=== PATIENT | female | born 1965 | race Caucasian/White ===

== ENCOUNTER → 2017-05-30 | Outpatient (CLI) | payer BC ==
--- NOTE | 2017-06-01 07:25 | MM ---
Reason for exam: screening (asymptomatic). Last mammogram was performed 1 year and 4 months ago. History: Patient is postmenopausal and has history of endometrial cancer at age 21. Physical Findings: A clinical breast exam by your physician is recommended on an annual basis and results should be correlated with mammographic findings. MG 3D Screening Mammo W/Cad Bilateral CC and MLO view(s) were taken. XCCL view(s) were taken of the left breast. Prior study comparison: February 04, 2016, bilateral MG 3d screening mammo w/cad. November 25, 2013, bilateral digital screening mammo w/CAD. There are scattered fibroglandular densities. There is chronic nodularity in the right breast. No significant changes when compared with prior studies. ASSESSMENT: Negative, BI-RAD 1 RECOMMENDATION: Routine screening mammogram of both breasts in 1 year.
== END | disposition home or self-care (01) ==
LOC: RADMAMWWP 16:29
PROVIDERS: ATTEND Family Medicine
DX: Z12.31 Encounter for screening mammogram for malignant neoplasm of breast (principal)
CPT/HCPCS: 77063; G0202

== ENCOUNTER → 2017-09-13 | Outpatient (CLI) | payer BC ==
[2017-09-13 09:54] LABS: HCT 46.9 % (34.0-46.0); HDW 2.29; HGB 15.4 gm/dL (11.4-16.0); MCH 29.9 pg (25.0-35.0); MCHC 32.7 g/dL (31.0-37.0); MCV 91.4 fL (80.0-100.0); Mean Platelet Volume 8.4; RBC 5.14 m/uL (3.80-5.40); RDW 13.5 % (11.5-15.5); WBC 7.3 k/uL (3.8-10.6)
[2017-09-13 10:08] LABS: ALT 44 U/L (9-52); AST 22 U/L (14-36); Alkaline Phosphatase 112 U/L (38-126); Anion Gap 5 mmol/L; Blood Urea Nitrogen 15 mg/dL (7-17); Calcium 10.2 mg/dL (8.4-10.2); Carbon Dioxide 30 mmol/L (22-30); Chloride 106 mmol/L (98-107); Glucose 124 mg/dL (74-99); Non-African American GFR(MDRD) >60 (>60 ml/min/1.73 sqM); Potassium 4.6 mmol/L (3.5-5.1); Sodium 141 mmol/L (137-145); Total Bilirubin 0.4 mg/dL (0.2-1.3); Total Protein 7.2 g/dL (6.3-8.2)
[2017-09-17 17:52] LABS: Large VLDL Particle Number,NMR 7.5 nmol/L (<=2.7)
== END | disposition home or self-care (01) ==
LOC: LABWHC1 09:01
PROVIDERS: ATTEND Nurse Practitioner Adult Health
DX: E78.2 Mixed hyperlipidemia (principal); I10 Essential (primary) hypertension; I42.2 Other hypertrophic cardiomyopathy
CPT/HCPCS: 36415; 80053; 83704; 85027

== ENCOUNTER → 2017-12-29 | Outpatient (CLI) | payer BC ==
--- NOTE | 2017-12-29 15:05 | CT ---
EXAMINATION TYPE: CT brain wo con DATE OF EXAM: 12/29/2017 COMPARISON: NONE HISTORY: sharp pains to right side of head, prior injuries to right side of head years ago CT DLP: 1017.9 mGycm Automated exposure control for dose reduction was used. FINDINGS: Metallic foreign body noted with along the posterior superior parietal calvarium on the right. Ventricular system is midline with no displacement. No mass effect. No acute hemorrhage. Calvarium intact. IMPRESSION: NO ACUTE PROCESS IF SYMPTOMS PERSIST RECOMMEND MRI. CHRONIC APPEARING SOFT TISSUE TISSUE FOREIGN BODY POSTERIORLY ALONG THE PARIETAL CALVARIUM PARACENTRALLY TO THE RIGHT.
== END | disposition home or self-care (01) ==
LOC: RADCTMAIN 14:21
PROVIDERS: ATTEND Physician Assistant Medical
DX: M79.5 Residual foreign body in soft tissue (principal); I10 Essential (primary) hypertension
CPT/HCPCS: 70450

== ENCOUNTER 2018-03-26 12:21 | Emergency (ER) | payer BC ==
[2018-03-26 13:01] VITALS: BP 152/81; PULSE 71; RESP 16; TEMP 98.3
--- NOTE | 2018-03-26 13:12 | ED ---
Lower Extremity Injury HPI - General Chief Complaint: Extremity Injury, Lower Stated Complaint: Knee Pain Time Seen by Provider: 03/26/18 13:01 Source: patient, RN notes reviewed Mode of arrival: wheelchair Limitations: no limitations - History of Present Illness Initial Comments: This is a 52-year-old female who presents to the emergency department with chief complaint of left knee pain. Patient states that on Monday she was doing some gardening. She states that she was repeatedly getting up and down from sitting on a 3 gallon bucket while gardening. She states that since that time she has had pain and swelling in her left knee. 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 She states that the pain is increased since repeatedly walking on it. She denies any other injuries or trauma. She states that she has a history of intermittent knee pain but that it usually goes away after a couple days. Denies fevers or chills, chest pain or shortness of breath, abdominal pain, nausea or vomiting. - Related Data Home Medications Medication Instructions Recorded Confirmed Atorvastatin [Lipitor] 40 mg PO HS 07/03/14 09/23/14 Famotidine 20 mg PO BID 07/03/14 09/23/14 Levothyroxine Sodium [Synthroid] 25 mcg PO DAILY 07/03/14 09/22/14 Omeprazole [PriLOSEC] 20 mg PO DAILY 07/03/14 09/22/14 Pramipexole Di-HCl [Mirapex] 0.25 mg PO HS 07/03/14 09/23/14 Ubidecarenone [Coq-10] 100 mg PO DAILY 07/03/14 09/23/14 Hyoscyamine Sulfate [Hyoscyamine 0.125 mg SL DIRECTED PRN 09/22/14 09/23/14 Sulfate SL] Nitroglycerin Oint [Nitro-Bid Oint] 1 applic TOPICAL BID 09/22/14 09/23/14 Previous Rx's Medication Instructions Recorded Hydrocodone/Acetaminophen [Mead 1 each PO Q4HR PRN #30 08/20/14 5-325] Ibuprofen [Motrin] 600 mg PO Q6HR PRN #30 tab 08/20/14 Allergies Allergy/AdvReac Type Severity Reaction Status Date / Time No Known Allergies Allergy Verified 03/26/18 13:01 Review of Systems ROS Statement: Those systems with pertinent positive or pertinent negative responses have been documented in the HPI. ROS Other: All systems not noted in ROS Statement are negative. Past Medical History Past Medical History: Chest Pain / Angina, GERD/Reflux, Hyperlipidemia, Thyroid Disorder Additional Past Medical History / Comment(s): STATES CURRENT RECTAL FISSURE AND RECTAL PAIN, blood in stool, hx ulcer, hx gout, frequent urination, states had couple readings of high BP at doctors office but not on rx or dx with hypertension. SOB with activity, hypertrophic cadrio myopathy History of Any Multi-Drug Resistant Organisms: None Reported Past Surgical History: Cholecystectomy, Hysterectomy, Orthopedic Surgery, Tonsillectomy, Tubal Ligation Additional Past Surgical History / Comment(s): rt foot surgery Past Anesthesia/Blood Transfusion Reactions: Motion Sickness Additional Past Anesthesia/Blood Transfusion Reaction / Comment(s): SPINNING Past Psychological History: No Psychological Hx Reported Smoking Status: Current every day smoker General Exam - General Exam Comments Initial Comments: General: Awake and alert, well-developed; in no apparent distress. HEENT: Head atraumatic, normocephalic. Pupils are equal, round and reactive to light. Extraocular movements intact. Oropharynx moist without erythema or exudate. Neck: Supple. Normal ROM. Cardiovascular: Regular rate and rhythm. No murmurs, rubs or gallops. Chest symmetrical. Respiratory: Lungs clear to auscultation bilaterally. No wheezes, rales or rhonchi. Normal respiratory effort with no use of accessory muscles. Musculoskeletal: Limited range of motion with flexion of the left knee due to pain. Generalized soft tissue swelling. No erythema. Tenderness on palpation of the medial joint line. Sensation is intact. Pedal pulses are 2+ equal and palpable bilaterally. Skin: [place], warm and dry without rashes or lesions. Neurological: Alert and oriented x3. CN II-XII grossly intact. Speech is fluent and answers are appropriate. No focal neuro deficits. Psychiatric: Normal mood and affect. No overt signs of depression or anxiety noted. Limitations: no limitations Course Vital Signs 03/26/18 12:58 Temperature 98.3 F Pulse Rate 71 Respiratory 16 Rate Blood Pressure 152/81 O2 Sat by Pulse 99 Oximetry Medical Decision Making - Medical Decision Making This is a 52-year-old female who presents to the emergency department with chief complaint of left knee injury. Patient reports repeated use of the left knee that has resulted in tenderness while ambulating and swelling. On physical examination, there is generalized soft tissue swelling of the left knee with tenderness along the medial joint line. She is neurovascularly intact. X-ray of the left knee revealed no acute fractures or dislocations. It did reveal a suprapatellar effusion. Knee immobilizer was provided and patient tolerated well without complication. Recommended rest, ice, elevation and follow-up with orthopedics. Patient is in agreement with plan and voices understanding. She is no acute distress and will be discharged home at this time. All questions answered. - Radiology Data Radiology results: report reviewed, image reviewed X-ray left knee impression: There is no acute fracture or dislocation. Suprapatellar joint effusion noted. Disposition Clinical Impression: Acute internal derangement of knee Disposition: HOME SELF-CARE Condition: Good Instructions: Knee Sprain (ED), Swollen Knee Joint (ED), Knee Immobilizer (ED) Additional Instructions: Please rest, ice, elevate and take ibuprofen as needed. Please follow up with Dr. Villaseñor, orthopedics within 1-2 days. Please follow up with primary care provider within 1-2 days. Return to emergency department if symptoms should worsen or any concerns arise. Is patient prescribed a controlled substance at d/c from ED?: No Referrals: Michael Bills DO [Primary Care Provider] - 1-2 days Hung Villaseñor MD [STAFF PHYSICIAN] - 1-2 days Time of Disposition: 13:43
--- NOTE | 2018-03-26 13:25 | XR ---
EXAMINATION TYPE: XR knee complete LT DATE OF EXAM: 03/26/2018 CLINICAL HISTORY: pain TECHNIQUE: Three views of the left knee are obtained. COMPARISON: None. FINDINGS: There is no acute fracture/dislocation. The tri-compartment joint spaces appear within no rmal limits. Suprapatellar joint effusion noted. IMPRESSION: There is no acute fracture or dislocation ICD 10 NO FRACTURE, INITIAL EVALUATION
== END 2018-03-26 13:55 | disposition home or self-care (01) ==
LOC: EC 12:21
DX: S89.82XA Other specified injuries of left lower leg, initial encounter (principal); M25.462 Effusion, left knee; E78.5 Hyperlipidemia, unspecified; E07.9 Disorder of thyroid, unspecified; K21.9 Gastro-esophageal reflux disease without esophagitis; F17.200 Nicotine dependence, unspecified, uncomplicated; Z79.899 Other long term (current) drug therapy; Z86.79 Personal history of other diseases of the circulatory system; X50.3XXA Overexertion from repetitive movements, initial encounter; Y93.H2 Activity, gardening and landscaping
CPT/HCPCS: 73562; 99283; L1830

== ENCOUNTER → 2018-07-24 | Outpatient (CLI) | payer BC ==
[2018-07-24 14:18] VITALS: BMI 29.9
== END | disposition home or self-care (01) ==
LOC: MNTWWP 10:56
PROVIDERS: ATTEND Family Medicine
DX: R73.03 Prediabetes (principal); I10 Essential (primary) hypertension
CPT/HCPCS: 97802

== ENCOUNTER → 2018-10-01 | Outpatient (CLI) | payer BC ==
--- NOTE | 2018-10-04 13:14 | MM ---
Reason for exam: screening (asymptomatic). Last mammogram was performed 1 year and 4 months ago. History: Patient is postmenopausal and has history of endometrial cancer at age 21. Physical Findings: A clinical breast exam by your physician is recommended on an annual basis and results should be correlated with mammographic findings. MG 3D Screening Mammo W/Cad Bilateral CC and MLO view(s) were taken. Prior study comparison: May 30, 2017, bilateral MG 3d screening mammo w/cad. February 04, 2016, bilateral MG 3d screening mammo w/cad. The breast tissue is heterogeneously dense. This may lower the sensitivity of mammography. Previous mammotome biopsy in the right breast. No significant changes when compared with prior studies. ASSESSMENT: Benign, BI-RAD 2 RECOMMENDATION: Routine screening mammogram of both breasts in 1 year.
== END | disposition home or self-care (01) ==
LOC: RADMAMWWP 10:49
PROVIDERS: ATTEND Family Medicine
DX: Z12.31 Encounter for screening mammogram for malignant neoplasm of breast (principal)
CPT/HCPCS: 77063; 77067

== ENCOUNTER → 2019-01-08 | Outpatient (CLI) | payer BC ==
--- NOTE | 2019-01-08 13:57 | XR ---
EXAMINATION TYPE: PA chest and left rib series DATE OF EXAM: 01/08/2019 Comparison: None Clinical History: 53-year-old female chronic left [id number] RIB PAIN FINDINGS: 5 views Findings: The cardiomediastinal silhouette, aorta, and pulmonary vasculature are within normal limits. Some st guy atelectasis in the lower lungs. Calcified granuloma peripheral left base. No consolidation or p leural effusion. No displaced left rib fracture seen. Impression: No acute cardiopulmonary process. No displaced left rib fracture seen.
== END | disposition home or self-care (01) ==
LOC: RADXRYALE 11:42
PROVIDERS: ATTEND Physician Assistant Medical
DX: R07.89 Other chest pain (principal)

== ENCOUNTER → 2020-06-30 | Outpatient (CLI) | payer BC ==
--- NOTE | 2020-06-30 22:55 | XR ---
EXAMINATION TYPE: XR wrist complete RT DATE OF EXAM: 06/30/2020 COMPARISON: None HISTORY: Pain from fall TECHNIQUE: Three-view right wrist FINDINGS: No acute fracture or dislocation is evident. Joint spaces are preserved. Soft tissues are n ormal. Follow-up exams can be performed 7-10 days from acute trauma for continued pain. If there is pain at the anatomic snuff box, nuclear medicine bone scan could be performed for additional evaluation. IMPRESSION: 1. Normal three-view right wrist.
--- NOTE | 2020-06-30 22:56 | XR ---
EXAMINATION TYPE: XR tibia fibula LT DATE OF EXAM: 06/30/2020 COMPARISON: None HISTORY: Pain swelling fall TECHNIQUE: 2 view left tibia and fibula FINDINGS: No acute fracture or dislocation is evident. Soft tissues appear normal. No significant swe lling is identified. No radiopaque foreign bodies are evident. Joint spaces are preserved. Follow-up studies can be performed 7-10 days from acute trauma for continued pain. IMPRESSION: 1. Normal 2 view left tibia and fibula
== END | disposition home or self-care (01) ==
LOC: RADXRYALE 15:43
PROVIDERS: ATTEND Family Medicine
DX: M25.532 Pain in left wrist (principal); M79.605 Pain in left leg

== ENCOUNTER 2020-08-10 10:52 | Observation (INO) | payer BC ==
[2020-08-10] MEDS ORDERED: SODIUM CHLORIDE 0.9% 500 ML 500 ML IV STA (11:25)
--- NOTE | 2020-08-10 11:35 | ED ---
General Adult HPI - General Chief complaint: Recheck/Abnormal Lab/Rx Stated complaint: Vertigo Time Seen by Provider: 08/10/20 11:11 Source: patient, RN notes reviewed, old records reviewed Mode of arrival: EMS Limitations: no limitations - History of Present Illness Initial comments: 55-year-old female presenting for evaluation of headache, weakness. Patient was at home. She had a headache which began approximately one hour prior to arrival. This was an occipital headache. At the time she had some associated nausea and diaphoresis. She states she felt like she was unable to move and EMS was called. Patient states that she has a persistent headache and nausea. No fever. She denies focal numbness or weakness at this time. She denies abdo david pain only nausea. - Related Data Home Medications Medication Instructions Recorded Confirmed Atorvastatin [Lipitor] 40 mg PO HS 07/03/14 08/10/20 Levothyroxine Sodium [Synthroid] 25 mcg PO DAILY 07/03/14 08/10/20 Omeprazole [PriLOSEC] 20 mg PO BID 07/03/14 08/10/20 Albuterol Sulfate [Ventolin HFA] 2 puff INHALATION RT-Q4H PRN 08/10/20 08/10/20 Baclofen [Lioresal] 20 mg PO BID PRN 08/10/20 08/10/20 Cholecalciferol [Vitamin D3 (25 4,000 unit PO DAILY 08/10/20 08/10/20 Mcg = 1000 Iu)] Ezetimibe [Zetia] 10 mg PO DAILY 08/10/20 08/10/20 Folic Acid 0.8 mg PO DAILY 08/10/20 08/10/20 Gabapentin [Neurontin] 300 mg PO TID 08/10/20 08/10/20 Ibuprofen [Motrin] 800 mg PO Q8H PRN 08/10/20 08/10/20 [place]-3 Fatty Acids/Fish Oil [Fish 1 cap PO DAILY 08/10/20 08/10/20 Oil 1,000 mg Softgel] Ondansetron HCl [Zofran] 1 - 2 mg PO Q8H PRN 08/10/20 08/10/20 Pramipexole [Mirapex] 1 mg PO HS 08/10/20 08/10/20 SUMAtriptan SUCCINATE [Imitrex] 25 mg PO BID PRN 08/10/20 08/10/20 Ubidecarenone [Co Q-10] 300 mg PO DAILY 08/10/20 08/10/20 amLODIPine BESYLATE/BENAZEPRIL 1 cap PO DAILY 08/10/20 08/10/20 [Lotrel 10-20 MG] sitaGLIPtin PHOSPHATE [Januvia] 50 mg PO DAILY 08/10/20 08/10/20 Allergies Allergy/AdvReac Type Severity Reaction Status Date / Time No Known Allergies Allergy Verified 08/10/20 12:34 Review of Systems ROS Statement: Those systems with pertinent positive or pertinent negative responses have been documented in the HPI. ROS Other: All systems not noted in ROS Statement are negative. Past Medical History Past Medical History: Chest Pain / Angina, Diabetes Mellitus, GERD/Reflux, Hyperlipidemia, Thyroid Disorder Additional Past Medical History / Comment(s): STATES CURRENT RECTAL FISSURE AND RECTAL PAIN, blood in stool, hx ulcer, hx gout, frequent urination, states had couple readings of high BP at doctors office but not on rx or dx with hypertension. SOB with activity, hypertrophic cadrio myopathy History of Any Multi-Drug Resistant Organisms: None Reported Past Surgical History: Cholecystectomy, Hysterectomy, Orthopedic Surgery, Tonsillectomy, Tubal Ligation Additional Past Surgical History / Comment(s): rt foot surgery Past Anesthesia/Blood Transfusion Reactions: Motion Sickness Additional Past Anesthesia/Blood Transfusion Reaction / Comment(s): SPINNING Past Psychological History: No Psychological Hx Reported Smoking Status: Current every day smoker Past Alcohol Use History: Rare Past Drug Use History: Marijuana General Exam Limitations: no limitations General appearance: alert, in no apparent distress Head exam: Present: atraumatic, normocephalic Eye exam: Present: normal appearance, PERRL ENT exam: Present: mucous membranes dry Neck exam: Present: normal inspection. Absent: tenderness, meningismus Respiratory exam: Present: normal lung sounds bilaterally. Absent: respiratory distress, wheezes Cardiovascular Exam: Present: regular rate, normal rhythm GI/Abdominal exam: Present: soft. Absent: distended, tenderness, guarding, rebound Extremities exam: Present: normal inspection, normal capillary refill. Absent: pedal edema, calf tenderness Neurological exam: Present: alert, oriented X3, CN II-XII intact. Absent: motor sensory deficit Psychiatric exam: Present: normal affect, normal mood Skin exam: Present: warm, dry, intact. Absent: cyanosis, diaphoretic Course Vital Signs 08/10/20 08/10/20 11:00 12:18 Temperature 97.9 F Pulse Rate 57 L 71 Respiratory 18 18 Rate Blood Pressure 116/66 122/71 O2 Sat by Pulse 96 97 Oximetry EKG Findings - EKG Comments: EKG Findings:: EKG: Sinus bradycardia, LVH, rate of 54, ND interval 184, QRS duration 98, QTC 455, no ST segment elevation. Medical Decision Making - Medical Decision Making 55-year-old female with dizziness, headache, vomiting. Patient stating she does have history of vertigo, this is somewhat similar. She also admits that she has not slept well in several weeks. She has no ataxia or focal findings on exam. Head CT is performed which is negative for intracranial hemorrhage or mass effect. Does show an empty sella. Patient has chest x-ray negative for acute cardiopulmonary findings. Laboratory testing reveals leukocytosis of uncertain etiology, otherwise unremarkable. After meclizine, Zofran, IV fluids she has persistent dizziness and nausea. She will be admitted for both symptomatic control and neurology consultation regarding her vertigo. Case discussed with Dr. silverio who will admit. - Lab Data Result diagrams: 08/10/20 11:49 08/10/20 11:49 Lab Results 08/10/20 08/10/20 08/10/20 Range/Units 11:49 11:49 11:49 WBC 13.8 H (3.8-10.6) k/uL RBC 4.81 (3.80-5.40) m/uL Hgb 14.9 (11.4-16.0) gm/dL Hct 44.1 (34.0-46.0) % MCV 91.8 (80.0-100.0) fL MCH 31.1 (25.0-35.0) pg MCHC 33.9 (31.0-37.0) g/dL RDW 12.2 (11.5-15.5) % Plt Count 201 (150-450) k/uL Neutrophils % 84 % Lymphocytes % 11 % Monocytes % 4 % Eosinophils % 1 % Basophils % 0 % Neutrophils # 11.6 H (1.3-7.7) k/uL Lymphocytes # 1.4 (1.0-4.8) k/uL Monocytes # 0.5 (0-1.0) k/uL Eosinophils # 0.1 (0-0.7) k/uL Basophils # 0.1 (0-0.2) k/uL PT 9.9 (9.0-12.0) sec INR 0.9 (<1.2) APTT 20.4 L (22.0-30.0) sec Sodium 138 (137-145) mmol/L Potassium 4.4 (3.5-5.1) mmol/L Chloride 109 H (98-107) mmol/L Carbon Dioxide 23 (22-30) mmol/L Anion Gap 6 mmol/L BUN 18 H (7-17) mg/dL Creatinine 0.60 (0.52-1.04) mg/dL Est GFR (CKD-EPI)AfAm >90 (>60 ml/min/1.73 sqM) Est GFR (CKD-EPI)NonAf >90 (>60 ml/min/1.73 sqM) Glucose 169 H (74-99) mg/dL Plasma Lactic Acid Joe (0.7-2.0) mmol/L Calcium 9.2 (8.4-10.2) mg/dL Magnesium 1.8 (1.6-2.3) mg/dL Total Bilirubin 0.5 (0.2-1.3) mg/dL AST 24 (14-36) U/L ALT 17 (4-34) U/L Alkaline Phosphatase 79 (38-126) U/L Troponin I (0.000-0.034) ng/mL Total Protein 6.7 (6.3-8.2) g/dL Albumin 4.2 (3.5-5.0) g/dL Urine Color Urine Appearance (Clear) Urine pH (5.0-8.0) Ur Specific [place] (1.001-1.035) Urine Protein (Negative) Urine Glucose (UA) (Negative) Urine Ketones (Negative) Urine Blood (Negative) Urine Nitrite (Negative) Urine Bilirubin (Negative) Urine Urobilinogen (<2.0) mg/dL Ur Leukocyte Esterase (Negative) Urine WBC (0-5) /hpf Ur Squamous Epith Cells (0-4) /hpf Urine Bacteria (None) /hpf Urine Mucus (None) /hpf 08/10/20 08/10/20 08/10/20 Range/Units 11:49 11:49 13:14 WBC (3.8-10.6) k/uL RBC (3.80-5.40) m/uL Hgb (11.4-16.0) gm/dL Hct (34.0-46.0) % MCV (80.0-100.0) fL MCH (25.0-35.0) pg MCHC (31.0-37.0) g/dL RDW (11.5-15.5) % Plt Count (150-450) k/uL Neutrophils % % Lymphocytes % % Monocytes % % Eosinophils % % Basophils % % Neutrophils # (1.3-7.7) k/uL Lymphocytes # (1.0-4.8) k/uL Monocytes # (0-1.0) k/uL Eosinophils # (0-0.7) k/uL Basophils # (0-0.2) k/uL PT (9.0-12.0) sec INR (<1.2) APTT (22.0-30.0) sec Sodium (137-145) mmol/L Potassium (3.5-5.1) mmol/L Chloride (98-107) mmol/L Carbon Dioxide (22-30) mmol/L Anion Gap mmol/L BUN (7-17) mg/dL Creatinine (0.52-1.04) mg/dL Est GFR (CKD-EPI)AfAm (>60 ml/min/1.73 sqM) Est GFR (CKD-EPI)NonAf (>60 ml/min/1.73 sqM) Glucose (74-99) mg/dL Plasma Lactic Acid Joe 1.9 (0.7-2.0) mmol/L Calcium (8.4-10.2) mg/dL Magnesium (1.6-2.3) mg/dL Total Bilirubin (0.2-1.3) mg/dL AST (14-36) U/L ALT (4-34) U/L Alkaline Phosphatase (38-126) U/L Troponin I <0.012 (0.000-0.034) ng/mL Total Protein (6.3-8.2) g/dL Albumin (3.5-5.0) g/dL Urine Color Yellow Urine Appearance Clear (Clear) Urine pH 5.5 (5.0-8.0) Ur Specific [place] 1.014 (1.001-1.035) Urine Protein Negative (Negative) Urine Glucose (UA) Negative (Negative) Urine Ketones Negative (Negative) Urine Blood Negative (Negative) Urine Nitrite Negative (Negative) Urine Bilirubin Negative (Negative) Urine Urobilinogen <2.0 (<2.0) mg/dL Ur Leukocyte Esterase Trace H (Negative) Urine WBC 2 (0-5) /hpf Ur Squamous Epith Cells 1 (0-4) /hpf Urine Bacteria Few H (None) /hpf Urine Mucus Rare H (None) /hpf Disposition Clinical Impression: Vertigo, Intractable nausea and vomiting Disposition: ADMITTED IP TO THIS [facility] Condition: Stable Is patient prescribed a controlled substance at d/c from ED?: No Referrals: Michael Bills DO [Primary Care Provider] - 1-2 days Decision to Admit Reason: Admit from EC Decision Date: 08/10/20 Decision Time: 13:59
--- NOTE | 2020-08-10 12:07 | CT ---
EXAMINATION TYPE: CT brain wo con DATE OF EXAM: 08/10/2020 COMPARISON: 12/29/2017 HISTORY: 55-year-old female [place], dizziness TECHNIQUE: Examination was done in axial plane without intravenous contrast. Coronal and sagittal r econstructions performed. CT DLP: 1099.4 mGycm Automated exposure control for dose reduction was used. FINDINGS: There is no evidence of acute intracranial hemorrhage, acute ischemic changes, mass, mass-effect, or extra-axial fluid collection. There is no effacement of cerebral sulci or basal subarachnoid cister ns. There is no hydrocephalus. There is no midline shift. Aguirre-white matter distinction is preserv ed. Empty sella redemonstrated. Moderate mucosal thickening posterior left ethmoid air cells. Mastoid air cells are pneumatized. Orbi ts and globes are intact. IMPRESSION: 1. Empty sella redemonstrated, possibly an incidental finding but can also be seen with entities such as pseudotumor cerebri. Clinically correlate. Otherwise, no acute intracranial abnormality seen. 2. Moderate chronic left ethmoid sinus disease.
[2020-08-10 12:13] LABS: Basophils # (A) 0.1 k/uL (0-0.2); Basophils % (A) 0 %; Eosinophils # (A) 0.1 k/uL (0-0.7); Eosinophils % (A) 1 %; HCT 44.1 % (34.0-46.0); HGB 14.9 gm/dL (11.4-16.0); Lymphocytes # (A) 1.4 k/uL (1.0-4.8); Lymphocytes % (A) 11 %; MCH 31.1 pg (25.0-35.0); MCHC 33.9 g/dL (31.0-37.0); MCV 91.8 fL (80.0-100.0); Mean Platelet Volume 7.8; Monocytes # (A) 0.5 k/uL (0-1.0); Monocytes % (A) 4 %; Neutrophils # (A) 11.6 k/uL (1.3-7.7); Neutrophils % (A) 84 %; Platelet Count 201 k/uL (150-450); RBC 4.81 m/uL (3.80-5.40); RDW 12.2 % (11.5-15.5); WBC 13.8 k/uL (3.8-10.6)
--- NOTE | 2020-08-10 12:16 | XR ---
EXAMINATION TYPE: XR chest 2V DATE OF EXAM: 08/10/2020 CLINICAL HISTORY: Weakness. TECHNIQUE: Frontal and lateral views of the chest are obtained. COMPARISON: 01/08/2019 chest radiograph FINDINGS: The cardiomediastinal silhouette is within normal limits for size. Pulmonary vasculature i s normal. Redemonstrated granuloma of the left lung base. Right basilar linear atelectasis versus sca rring redemonstrated. There is no focal air space opacity, pleural effusion, or pneumothorax seen. Th e osseous structures are intact. IMPRESSION: No acute cardiopulmonary process.
[2020-08-10 12:19] LABS: ALT 17 U/L (4-34); AST 24 U/L (14-36); African American GFR (CKD) >90 (>60 ml/min/1.73 sqM); Albumin 4.2 g/dL (3.5-5.0); Alkaline Phosphatase 79 U/L (38-126); Anion Gap 6 mmol/L; Blood Urea Nitrogen 18 mg/dL (7-17); Calcium 9.2 mg/dL (8.4-10.2); Carbon Dioxide 23 mmol/L (22-30); Chloride 109 mmol/L (98-107); Glucose 169 mg/dL (74-99); Magnesium 1.8 mg/dL (1.6-2.3); Non-African American GFR(CKD) >90 (>60 ml/min/1.73 sqM); Potassium 4.4 mmol/L (3.5-5.1); Sodium 138 mmol/L (137-145); Total Bilirubin 0.5 mg/dL (0.2-1.3); Total Protein 6.7 g/dL (6.3-8.2)
[2020-08-10 12:28] LABS: INR 0.9 (<1.2); Prothrombin Time 9.9 sec (9.0-12.0)
[2020-08-10 12:34] LABS: Partial Thromboplastin Time 20.4 sec (22.0-30.0)
[2020-08-10] MEDS ORDERED: SODIUM CHLORIDE 0.9% 500 ML 500 ML IV ONE (12:59)
[2020-08-10] MEDS ORDERED: ONDANSETRON 4 MG/2 ML VIAL IVP STA (12:59)
[2020-08-10] MEDS ORDERED: MECLIZINE 12.5 MG TAB PO STA (12:59)
[2020-08-10 13:37] LABS: Appearance,Urine Clear (Clear); Bacteria,Urine Few /hpf; Bilirubin,Urine Negative (Negative); Blood,Urine Negative (Negative); Color,Urine Yellow; Glucose,Urine (UA) Negative (Negative); Ketones,Urine Negative (Negative); Leukocyte Esterase,Urine Trace (Negative); Mucus,Urine Rare /hpf; Nitrite,Urine Negative (Negative); PH, Urine 5.5 (5.0-8.0); Protein,Urine Negative (Negative); Specific Gravity,Urine 1.014 (1.001-1.035); Squamous Epithelial Cell,Urine 1 /hpf (0-4); Urobilinogen,Urine <2.0 mg/dL (<2.0); WBC,Urine 2 /hpf (0-5)
[2020-08-10] MEDS ORDERED: ASPIRIN 325 MG TAB PO STA (13:56)
[2020-08-10] MEDS ORDERED: LORazepam 2 MG/ML INJ IV PRN (13:56)
[2020-08-10] MEDS ORDERED: ONDANSETRON 4 MG/2 ML VIAL IVP PRN ×2 (13:56→19:30)
[2020-08-10] MEDS ORDERED: NALOXONE 0.4 MG/ML 1 ML VIAL IV PRN (13:56)
[2020-08-10] MEDS ORDERED: MECLIZINE 25 MG TAB PO PRN (13:56)
[2020-08-10] MEDS ORDERED: ACETAMINOPHEN TAB 325 MG TAB PO PRN (13:56)
[2020-08-10] MEDS: SODIUM CHLORIDE 0.9% 1,000 ML IV SCH (14:54)
[2020-08-10 16:35] LABS: Glucose,Whole Blood 123 mg/dL (75-99)
--- NOTE | 2020-08-10 18:29 | P.CNNES ---
History of Present Illness Consult date: 08/10/20 Requesting physician: Heriberto Dupont Reason for Consult: Vertigo History of Present Illness: Patient is a 55-year-old female came to the Hospital by ambulance today at around 11 AM for evaluation of episode of vertigo. Patient states that she usually wakes up at 3:30 AM. Usually after waking up she sits on her couch in the garage where she also has 4 dogs. She usually smokes cigarettes, drinks coffee for 3-4 hours, until other family members wake up. She did the same thing, later took her dog for a walk in her backyard. After she came back inside her home, she wanted to get ready for the upcoming Halloween constitution party. She realizes that she has not had anything to eat for breakfast. It was almost 9 AM. Patient tried to eat protein bar, but could not eat because of nausea. Then everything started spinning with nausea but no vomiting. Patient felt generalized weakness, with no focal weakness. No slurred speech or facial droop. She checked her blood sugar was 128, blood pressure could not be checked because she felt sick. EMS was called and when they arrived, her blood pressure was 185/151, pulse rate 63 respiration 24 saturation 99% and blood sugar 266. As per EMS flow sheet, when they arrived, patient was seated position in her home, complete by family. In no obvious distress and she would not make eye contact upon greeting. She was alert and oriented 4 complaining of dizziness. She had mentioned that symptoms started 2 hours prior while at rest accompanied by weakness and vertigo. No recent changes to her medication. Patient's symptoms that her symptoms have mostly resolved, couple hours after she arrived to the hospital. Overall the symptoms lasted for about 4 hours. Vital signs on arrival blood pressure 116/66, pulse rate 57, temperature 97.9. CT head showed empty sella redemonstrated, possibly incidental finding but can also be seen with entities such as pseudotumor cerebri. Clinically correlated. Otherwise no acute intracranial abnormality seen. Moderate chronic left ethmoid sinus disease. External auditory canal appears clear. Chest x-ray showed no acute cardiopulmonary process. EKG with sinus bradycardia. Voltage criteria for LVH. Patient has diabetes for 1-1/2 years. She has smoked 1 pack per day since age 14 years. Drinks alcohol very rarely, occasionally smokes marijuana. Patient takes aspirin 81 mg only couple times a week. She has tinnitus, occasional earaches but no loss of hearing. Has sinus congestion. Patient states that 3 years ago she was sitting at the picnic table, when she developed similar symptoms again lasted for 4 hours. Patient was seen by her primary physician who recommended to try Flonase to help with nasal congestion. It helped in the beginning. Review of Systems Patient denies any focal weakness. She only had generalized weakness. No diplopia. Denies any chest pain shortness of breath, wheezing or cough. Denies diarrhea. Patient did have nausea. No fever or chills. No head or neck trauma. Denies any rash. She does have tinnitus, occasional earache but no loss of hearing. Patient does have sinus issues. Past Medical History Past Medical History: Chest Pain / Angina, Diabetes Mellitus, GERD/Reflux, Hyperlipidemia, Thyroid Disorder Additional Past Medical History / Comment(s): STATES CURRENT RECTAL FISSURE AND RECTAL PAIN, blood in stool, hx ulcer, hx gout, frequent urination, states had couple readings of high BP at doctors office but not on rx or dx with hypertension. SOB with activity, hypertrophic cadrio myopathy History of Any Multi-Drug Resistant Organisms: None Reported Past Surgical History: Cholecystectomy, Hysterectomy, Orthopedic Surgery, Tonsillectomy, Tubal Ligation Additional Past Surgical History / Comment(s): rt foot surgery Past Anesthesia/Blood Transfusion Reactions: Motion Sickness Additional Past Anesthesia/Blood Transfusion Reaction / Comment(s): SPINNING Past Psychological History: No Psychological Hx Reported Smoking Status: Current every day smoker Past Alcohol Use History: Rare Past Drug Use History: Marijuana - Past Family History Father Family Medical History: CVA/TIA, Dementia, Diabetes Mellitus Additional Family Medical History / Comment(s): arthritis, cabg Mother Family Medical History: Diabetes Mellitus Additional Family Medical History / Comment(s): glacoma Medications and Allergies Home Medications Medication Instructions Recorded Confirmed Type Atorvastatin [Lipitor] 40 mg PO HS 07/03/14 08/10/20 History Levothyroxine Sodium [Synthroid] 25 mcg PO DAILY 07/03/14 08/10/20 History Omeprazole [PriLOSEC] 20 mg PO BID 07/03/14 08/10/20 History Albuterol Sulfate [Ventolin HFA] 2 puff INHALATION RT-Q4H PRN 08/10/20 08/10/20 History Baclofen [Lioresal] 20 mg PO BID PRN 08/10/20 08/10/20 History Cholecalciferol [Vitamin D3 (25 4,000 unit PO DAILY 08/10/20 08/10/20 History Mcg = 1000 Iu)] Ezetimibe [Zetia] 10 mg PO DAILY 08/10/20 08/10/20 History Folic Acid 0.8 mg PO DAILY 08/10/20 08/10/20 History Gabapentin [Neurontin] 300 mg PO TID 08/10/20 08/10/20 History Ibuprofen [Motrin] 800 mg PO Q8H PRN 08/10/20 08/10/20 History [place]-3 Fatty Acids/Fish Oil [Fish 1 cap PO DAILY 08/10/20 08/10/20 History Oil 1,000 mg Softgel] Ondansetron HCl [Zofran] 1 - 2 mg PO Q8H PRN 08/10/20 08/10/20 History Pramipexole [Mirapex] 1 mg PO HS 08/10/20 08/10/20 History SUMAtriptan SUCCINATE [Imitrex] 25 mg PO BID PRN 08/10/20 08/10/20 History Ubidecarenone [Co Q-10] 300 mg PO DAILY 08/10/20 08/10/20 History amLODIPine BESYLATE/BENAZEPRIL 1 cap PO DAILY 08/10/20 08/10/20 History [Lotrel 10-20 MG] sitaGLIPtin PHOSPHATE [Januvia] 50 mg PO DAILY 08/10/20 08/10/20 History Allergies Allergy/AdvReac Type Severity Reaction Status Date / Time No Known Allergies Allergy Verified 08/10/20 12:34 Physical Examination - Vital Signs Vital Signs: Vital Signs Temp Pulse Pulse Resp BP BP Pulse Ox 08/10/20 15:10 98.6 F 58 L 16 124/77 97 08/10/20 14:58 97.8 F 08/10/20 14:49 71 16 122/81 08/10/20 12:18 71 18 122/71 97 08/10/20 11:00 97.9 F 57 L 18 116/66 96 Intake and Output 08/10/20 08/10/20 08/10/20 06:59 14:59 22:59 Other: Voiding Method Toilet Weight 98.43 kg On examination patient is a middle aged female, in no acute distress. Patient is alert awake oriented to time place and person. Speech and language functions are normal. Attention and concentration fund of knowledge is adequate. On cranial nerve examination pupils are round and reactive to light, visual kapoor are full on confrontation, extraocular muscles are intact. Mild nystagmus was noted on end gaze bilaterally. Face is symmetric, tongue protrudes the midline. Palatal elevation and sensation normal hearing and shoulder shrug normal. Facial sensation normal. On muscle strength testing there is no pronator drift and the strength is normal in arms and legs distally and proximally, deep tendon, deep tendon reflexes are 1+ and plantars downgoing. Sensory touch is equal with no neglect no ataxia for [id number] or [id number] testing on either sides. Tone and bulk of muscles normal. Patient says she has been going to the bathroom, and feels very steady. There is no obvious bruit, S1 and S2 audible, abdomen soft nontender, chest clear. Results - Laboratory Findings CBC and BMP: 08/10/20 11:49 08/10/20 11:49 Abnormal Lab Findings: Abnormal Labs 08/10/20 08/10/20 08/10/20 11:49 11:49 11:49 WBC 13.8 H Neutrophils # 11.6 H APTT 20.4 L Chloride 109 H BUN 18 H Glucose 169 H Ur Leukocyte Esterase Urine Bacteria Urine Mucus 08/10/20 13:14 WBC Neutrophils # APTT Chloride BUN Glucose Ur Leukocyte Esterase Trace H Urine Bacteria Few H Urine Mucus Rare H Assessment and Plan Assessment: * 55-year-old female with second episode of vertigo, lasting for about 4 hours. The first one occurred about 3 years ago also lasted for 4 hours. Her examination is significant for mild nystagmus, otherwise nonfocal. Computed tomography scan of the head revealed some sinus congestion involving the left ethmoid air cells. Suspect peripheral vascular dysfunction. Central cause less likely. * Hypertension * Diabetes * Dyslipidemia * Tobacco use Plan: * Consider Medrol Dosepak. * Antivert as needed. * We will rule out any embolic source with Carotid Doppler to rule out stenosis. * 2-D echo to rule out embolic source. * We will check B12, folate, A1c. * Patient suggested to continue aspirin on a regular basis. She takes low-dose aspirin about twice a week. She should take it on a daily basis because of presence of multiple vascular risk factors. * Recommended complete tobacco cessation.
[2020-08-10] MEDS ORDERED: IBUPROFEN 800 MG TAB PO PRN (19:24)
[2020-08-10] MEDS ORDERED: SUMAtriptan succinate 25 MG TAB PO PRN (19:24)
--- NOTE | 2020-08-10 19:58 | US ---
EXAMINATION TYPE: US carotid duplex BILAT DATE OF EXAM: 08/10/2020 COMPARISON: CT CLINICAL HISTORY: Vertigo. Vertigo. Hx hypertension, hyperlipidemia, current smoker. EXAM MEASUREMENTS: RIGHT: Peak Systolic Velocity (PSV) cm/sec ----- Right CCA: 66.6 ----- Right ICA: 93.8 ----- Right ECA: 142.6 ICA/CCA ratio: 1.4 RIGHT: End Diastole cm/sec ----- Right CCA: 14.9 ----- Right ICA: 34.4 ----- Right ECA: 13.4 LEFT: Peak Systolic Velocity (PSV) cm/sec ----- Left CCA: 84.5 ----- Left ICA: 97.5 ----- Left ECA: 103.9 ICA/CCA ratio: 1.2 LEFT: End Diastole cm/sec ----- Left CCA: 19.8 ----- Left ICA: 26.3 ----- Left ECA: 18.5 VERTEBRALS (direction of flow): Right Vertebral: Antegrade Left Vertebral: Antegrade Rhythm: Normal Mild/moderate eccentric Hyperechoic plaque seen left carotid bifurcation. Elevated velocity right ECA . Hypoechoic area with hyperechoic center seen right neck measurin.6 x 1.0 x 0.4 cm. Suspect benign lymph node. IMPRESSION: No hemodynamically significant stenosis seen in either internal carotid artery. Criteria for Assigning % of Stenosis / Diameter reduction (Estimation based on the indirect measurements of the internal carotid artery velocities (ICA PSV). 1. Normal (no stenosis)=ICA PSV < 125 cm/s: ratio < 2.0: ICA EDV<40 cm/s. 2. Less than 50% stenosis=ICA PSV < 125 cm/s: ratio < 2.0: ICA EDV<40 cm/s. 3. 50 to 69% stenosis=ICA PSV of 125 to 230 cm/s: ration 2.0 ? 4.0: ICA EDV 40-100 cm/s. 4. Greater than 70% stenosis to near occlusion= ICA PSV > 230 cm/s: ratio > 4.0: ICA EDV > 100 cm/s. 5. Near occlusion= ICA PSV velocities may be low or undetectable: variable ratio and ICA EDV. 6. Total occlusion=unable to detect flow.
[2020-08-10] MEDS: ATORVASTATIN 40 MG TAB PO SCH (20:53)
[2020-08-10] MEDS: BACLOFEN 10 MG TAB PO PRN (20:53)
[2020-08-10] MEDS: PRAMIPEXOLE 1 MG TAB PO SCH (20:53)
[2020-08-10] MEDS: PANTOPRAZOLE 40 MG/10 ML VIAL IVP SCH (20:53)
[2020-08-10] MEDS: GABAPENTIN 300 MG CAP PO SCH (20:53)
[2020-08-10 21:09] LABS: Glucose,Whole Blood 132 mg/dL (75-99)
--- NOTE | 2020-08-10 23:08 | HP ---
HISTORY AND PHYSICAL DATE OF SERVICE: 08/10/2020 CHIEF COMPLAINTS: Nausea, vomiting, headache, weakness and dizziness. HISTORY OF PRESENT ILLNESS: This 55-year-old woman with a past medical history of multiple medical problems, including history of chest pain, diabetes mellitus, hypertension, hyperlipidemia, hypothyroidism, history of rectal fissure and rectal pain, being followed by Dr. Bills in the outpatient setting, was complaining of nausea. The patient had some headache also. Patient subsequently had diaphoresis was feeling dizzy. The patient came to [facility] and was admitted for further evaluation and treatment. Multiple evaluations are in progress at this time. The patient also had a complete neurovascular workup. CT of the brain showed empty sella and moderate chronic ethmoidal inflammation. Carotid Doppler showed no evidence of hemodynamically significant stenosis. Neurology, Dr. Leos, has seen the patient and recommended Medrol Dosepak. There is no history of any fever, rigor or chills. No history of headache, loss of consciousness, seizures at this time. PAST MEDICAL HISTORY: History of chest pain, history of diabetes mellitus, history of GERD, hypertension, hypothyroidism, history of rectal fissure. HOME MEDICATIONS: 1. Motrin 800 mg q.6 p.r.n. 2. Vitamin D3. 3. Coenzyme Q. 4. Fish oil. 5. Ventolin HFA. 6. Lioresal. 7. Mirapex. 8. Zetia. 9. Januvia. 10.Amlodipine. 11.Prilosec. 12.Synthroid. 13.Zofran. 14.Neurontin. 15.Lipitor. 16.Imitrex. ALLERGIES: NONE. FAMILY HISTORY: History of CVA and TIA, dementia, diabetes mellitus, arthritis, CABG. SOCIAL HISTORY: History of alcohol. History of THC. History of nicotine dependence. REVIEW OF SYSTEMS: ENT: As mentioned earlier. CARDIOVASCULAR SYSTEM: No angina, palpitations. RESPIRATORY SYSTEM: As mentioned earlier. GI: No nausea, vomiting. : No dysuria or retention. NERVOUS SYSTEM: No numbness, weakness. ALLERGY/IMMUNOLOGY: No asthma, hayfever. MUSCULOSKELETAL: As mentioned earlier. HEMATOLOGY/ONCOLOGY: No history of anemia. ENDOCRINE: Hypothyroidism. CONSTITUTIONAL: As mentioned earlier. DERMATOLOGY: Negative. RHEUMATOLOGY: Negative. PSYCHIATRY: As mentioned earlier. PHYSICAL EXAMINATION: Alert and oriented x3. Pulse is 60, blood pressure 117/72, respiration 18, temperature 98.7, pulse ox 97% on room air. HEENT: Conjunctivae normal. NECK: No jugular venous distention. CARDIOVASCULAR SYSTEM: S1, S2 muffled. RESPIRATORY SYSTEM: Breath sounds diminished at the bases. A few scattered rhonchi. No crackles. ABDOMEN: Soft, obese, non-tender. No mass palpable. LEGS: No edema. No swelling. NERVOUS SYSTEM: Higher functions as mentioned earlier. Moves all 4 limbs. No focal motor or sensory deficit. LYMPHATICS: No lymph node palpable in neck, axillae or groin. SKIN: No ulcer, rash, bleeding. JOINTS: No active deforming arthropathy. LABS: WBC 13.3, hemoglobin 14.9. Glucose noted. ASSESSMENT: 1. Acute nausea, vomiting; possible acute gastritis. 2. Possible benign positional vertigo. 3. Increased white count.. 4. History of diabetes mellitus, type 2. 5. Gastroesophageal reflux disease. 6. Hyperlipidemia. 7. Hypothyroidism. 8. History of rectal fissures. 9. History of gout. 10.History of degenerative joint disease. 11.History of nicotine dependence. 12.Obesity with body mass index of 30.3. 13.FULL CODE. RECOMMENDATIONS AND DISCUSSION: In this 55-year-old woman who presented with multiple complex medical issues, we will monitor the patient closely, continue the current medications, continue symptomatic treatment. Will initiate home medications. Symptomatic treatment. Otherwise, increase ambulation. Closely follow with Neurology. Guarded prognosis because of multiple complex medical issues. Further recommendations to follow. A copy of this dictation is being forwarded to Dr. Bills, who is the primary physician. We will provide symptomatic treatment as well. MMODL / IJN: [id number] /
[2020-08-11 03:09] VITALS: RESP 16
[2020-08-11] MEDS: SODIUM CHLORIDE 0.9% 1,000 ML IV SCH ×2 (03:52→17:00)
[2020-08-11] MEDS: LEVOTHYROXINE 25 MCG TAB PO SCH (06:13)
[2020-08-11 06:14] LABS: Glucose,Whole Blood 135 mg/dL (75-99)
[2020-08-11] MEDS: lisinopriL 20 MG TAB PO SCH (08:25)
[2020-08-11] MEDS: GABAPENTIN 300 MG CAP PO SCH ×3 (08:25→20:32)
[2020-08-11] MEDS: FOLIC ACID 1 MG TAB PO SCH (08:25)
[2020-08-11] MEDS: CHOLECALCIFEROL 1,000 UNIT TAB PO SCH (08:25)
[2020-08-11] MEDS: ASPIRIN 81 MG PO SCH (08:25)
[2020-08-11] MEDS: amLODIPine 10 MG TAB PO SCH (08:26)
[2020-08-11] MEDS: PANTOPRAZOLE 40 MG/10 ML VIAL IVP SCH (08:26)
[2020-08-11] MEDS: EZETIMIBE 10 MG TAB PO SCH (08:31)
[2020-08-11] MEDS: LINAGLIPTIN 5 MG TABLET PO SCH (08:31)
[2020-08-11] MEDS: methylPREDNISolone 4 MG TAB TAPER PO SCH (08:31)
[2020-08-11] MEDS ORDERED: NON FORMULARY DRUG (Ubidecarenone [Co Q-10] 300 MG Capsule) PO SCH (09:00)
[2020-08-11] MEDS ORDERED: NON FORMULARY DRUG (Omega-3 Fatty Acids/Fish Oil [Fish Oil 1,000 Mg Softgel] 1 EACH Capsul PO SCH (09:00)
[2020-08-11 09:28] LABS: Basophils # (A) 0.1 k/uL (0-0.2); Basophils % (A) 1 %; Eosinophils # (A) 0.1 k/uL (0-0.7); Eosinophils % (A) 1 %; HCT 46.1 % (34.0-46.0); Lymphocytes # (A) 2.1 k/uL (1.0-4.8); Lymphocytes % (A) 28 %; MCH 30.5 pg (25.0-35.0); MCHC 32.4 g/dL (31.0-37.0); Mean Platelet Volume 8.3; Monocytes # (A) 0.3 k/uL (0-1.0); Monocytes % (A) 4 %; Neutrophils # (A) 4.7 k/uL (1.3-7.7); Neutrophils % (A) 64 %; Platelet Count 191 k/uL (150-450); RBC 4.91 m/uL (3.80-5.40); RDW 12.4 % (11.5-15.5); WBC 7.5 k/uL (3.8-10.6)
[2020-08-11 09:33] LABS: African American GFR (CKD) >90 (>60 ml/min/1.73 sqM); Anion Gap 5 mmol/L; Blood Urea Nitrogen 15 mg/dL (7-17); Calcium 9.4 mg/dL (8.4-10.2); Carbon Dioxide 25 mmol/L (22-30); Chloride 108 mmol/L (98-107); Glucose 145 mg/dL (74-99); Non-African American GFR(CKD) >90 (>60 ml/min/1.73 sqM); Potassium 4.5 mmol/L (3.5-5.1); Sodium 138 mmol/L (137-145)
[2020-08-11 11:37] LABS: Glucose,Whole Blood 177 mg/dL (75-99)
--- NOTE | 2020-08-11 12:38 | ECHOF ---
Referral Reason:Vertigo MEASUREMENTS -------- HEIGHT: 180.3 cm WEIGHT: 98.4 kg BP: 124/73 IVSd: 1.8 cm (0.6 - 1.1) LVIDd: 3.5 cm (3.9 - 5.3) LVPWd: 2.0 cm (0.6 - 1.1) IVSs: 2.5 cm LVIDs: 1.3 cm LVPWs: 2.6 cm LAESV Index (A-L): 15.65 ml/m Ao Diam: 2.9 cm (2.0 - 3.7) AV Cusp: 2.0 cm (1.5 - 2.6) LA Diam: 3.1 cm (2.7 - 3.8) MV EXCURSION: 16.312 mm (> 18.000) MV EF SLOPE: 67 mm/s (70 - 150) EPSS: 0.4 cm MV E Rajesh: 0.78 m/s MV DecT: 286 ms MV A Rajesh: 1.08 m/s MV E/A Ratio: 0.72 RAP: 5.00 mmHg RVSP: 15.07 mmHg FINDINGS -------- This was a technically good study. The left ventricular size is normal. There is severe concentric left ventricular hypertrophy. Ove rall left ventricular systolic function is normal with, an EF between 55 - 60 %. Normal LAP Grade 1 Diastolic Dysfunction. The right ventricle is normal in size. The left atrial size is normal. Normal LA size by volume 22+/-6 ml/m2. The right atrial size is normal. The aortic valve was not well visualized. The mitral valve is normal. Mild mitral regurgitation is present. The tricuspid valve appears structurally normal. Mild tricuspid regurgitation present. Right vent ricular systolic pressure is normal at < 35 mmHg. There is no pulmonic regurgitation present. The aortic root size is normal. Normal inferior vena cava with normal inspiratory collapse consistent with estimated right atrial pre ssure of 5 mmHg. There is a trivial pericardial effusion present. CONCLUSIONS -------- 1. The left ventricular size is normal. 2. There is severe concentric left ventricular hypertrophy. 3. Overall left ventricular systolic function is normal with, an EF between 55 - 60 %. 4. Normal LAP Grade 1 Diastolic Dysfunction. 5. Mild mitral regurgitation is present. 6. Mild tricuspid regurgitation present. 7. There is a trivial pericardial effusion present. HEARING CONSULTANT: Simona Waggoner RDCS
--- NOTE | 2020-08-11 14:56 | P.PN ---
Subjective Progress Note Date: 08/11/20 Patient feels fine, wants to go home, vertigo resolved. Objective - Vital Signs Vital signs: Vital Signs Temp 98.0 F 08/11/20 14:45 Pulse 60 08/11/20 14:45 Resp 16 08/11/20 14:45 BP 151/85 08/11/20 14:45 Pulse Ox 97 08/11/20 14:45 Intake & Output 08/10/20 08/11/20 08/11/20 18:59 06:59 18:59 Intake Total 900 Balance 900 Weight 98.43 kg Intake: Intake, IV Titration 900 Amount Sodium Chloride 0.9% 1, 900 000 ml @ 75 mls/hr IV . [id number] [facility] Rx#:[id number] Other: Voiding Method Toilet Toilet # Voids 3 1 - Exam Nonfocal. - Labs CBC & Chem 7: 08/11/20 08:37 08/11/20 08:37 Labs: Abnormal Lab Results - Last 24 Hours (Table) 08/10/20 08/10/20 08/11/20 Range/Units 16:33 21:07 06:12 Hct (34.0-46.0) % Chloride (98-107) mmol/L Glucose (74-99) mg/dL POC Glucose (mg/dL) 123 H 132 H 135 H (75-99) mg/dL 08/11/20 08/11/20 08/11/20 Range/Units 08:37 08:37 11:35 Hct 46.1 H (34.0-46.0) % Chloride 108 H (98-107) mmol/L Glucose 145 H (74-99) mg/dL POC Glucose (mg/dL) 177 H (75-99) mg/dL Assessment and Plan Assessment: * 55-year-old female with second episode of vertigo, lasting for about 4 hours. The first one occurred about 3 years ago also lasted for 4 hours. Her examination is significant for mild nystagmus, otherwise nonfocal. Computed tomography scan of the head revealed some sinus congestion involving the left ethmoid air cells. Suspect peripheral vascular dysfunction. Central cause less likely. * Hypertension * Diabetes * Dyslipidemia * Tobacco use Plan: * Consider Medrol Dosepak. * Antivert as needed. * Carotid Doppler showed no significant ICA stenosis. Antegrade flow in both vertebral arteries * 2-D echo showed normal left-ventricular size. Severe concentric LVH. EF is 55-60%. Minimal MR. No obvious embolic source identified. Suggest cardiology consultation. * B12 253, which is low, folate 20.2, A1c 6.0. We will start B12 replacement. * Patient suggested to continue aspirin 81 mg on a regular basis. She takes low-dose aspirin about twice a week. She should take it on a daily basis because of presence of multiple vascular risk factors. * Complete tobacco cessation. Patient states "it's easy to say than done", but will try.
[2020-08-11 15:48] LABS: Folate, Serum 20.2 ng/mL
[2020-08-11 16:41] LABS: Glucose,Whole Blood 182 mg/dL (75-99)
[2020-08-11] MEDS ORDERED: CYANOCOBALAMIN 1,000 MCG/ML 1 ML VIAL IM SCH ×2 (18:00→21:00)
--- NOTE | 2020-08-11 19:35 | P.PN ---
Subjective This is a pleasant 55 years old female with multiple medical problems including hyperlipidemia, diabetes mellitus, gastroesophageal reflux disease and hypothyroidism, gout and hypertrophic cardiomyopathy. Presents with signs and symptoms of dizziness. Patient reports that she felt she is going to pass out but she did not actually syncopized and then that progressed as if the room was spinning around her. She states this happened to her about 3 years ago and this is the second time. She denies chest pain or dyspnea . No other complaints. She denies any GI or urinary symptoms. No fever. She denies headaches or numbness or weakness. Today she feels fine and no specific complaints Her workup was an unremarkable Including labs with CBC, BMP, sugar controlled, hemoglobin A1c is normal at 6.0%, However her vitamin B-12 is borderline low at 253. Folate is normal Carotid Doppler showing no significant stenosis. She is currently on aspirin 81 mg daily which is continuing. Normal son 75 mL/h which is a stopped. Neurologist evaluated the patient and cleared her for discharge however echocardiogram showing severe left ventricular hypertrophy which is consistent with her history of hypertrophic cardiomyopathy, and review of her significant cardiac abnormality we will keep the patient in the hospital and ask for cardiology evaluation. Objective - Vital Signs Vital signs: Vital Signs Temp 98.0 F 08/11/20 14:45 Pulse 60 08/11/20 14:45 Resp 16 08/11/20 14:45 BP 151/85 08/11/20 14:45 Pulse Ox 97 08/11/20 14:45 Intake & Output 08/10/20 08/11/20 08/11/20 18:59 06:59 18:59 Intake Total 900 Balance 900 Weight 98.43 kg Intake: Intake, IV Titration 900 Amount Sodium Chloride 0.9% 1, 900 000 ml @ 75 mls/hr IV . [id number] [facility] Rx#:[id number] Other: Voiding Method Toilet Toilet # Voids 3 1 - Exam GENERAL: The patient is alert and oriented x3, not in any acute distress. Well developed, well nourished. HEENT: Pupils are round and equally reacting to light. EOMI. No scleral icterus. No conjunctival pallor. Normocephalic, atraumatic. No pharyngeal erythema. No thyromegaly. CARDIOVASCULAR: S1 and S2 present. No murmurs, rubs, or gallops. PULMONARY: Chest is clear to auscultation, no wheezing or crackles. ABDOMEN: Soft, nontender, nondistended, normoactive bowel sounds. No palpable organomegaly. MUSCULOSKELETAL: No joint swelling or deformity. EXTREMITIES: No cyanosis, clubbing, or pedal edema. NEUROLOGICAL: Gross neurological examination did not reveal any focal deficits. SKIN: No rashes. no petechiae. - Labs CBC & Chem 7: 08/11/20 08:37 08/11/20 08:37 Labs: Abnormal Lab Results - Last 24 Hours (Table) 08/10/20 08/11/20 08/11/20 Range/Units 21:07 06:12 08:37 Hct (34.0-46.0) % Chloride 108 H (98-107) mmol/L Glucose 145 H (74-99) mg/dL POC Glucose (mg/dL) 132 H 135 H (75-99) mg/dL 08/11/20 08/11/20 08/11/20 Range/Units 08:37 11:35 16:39 Hct 46.1 H (34.0-46.0) % Chloride (98-107) mmol/L Glucose (74-99) mg/dL POC Glucose (mg/dL) 177 H 182 H (75-99) mg/dL Assessment and Plan Assessment: Dizziness with combined sence of presyncope and vertigo, rule out cardiac causes red neurologist cleared The patient for outpatient follow-up Hypertrophic cardiomyopathy Low normal B-12, replaced Diabetes mellitus Hyperlipidemia Gastroesophageal reflux disease Hypothyroidism History of gout Plan: This is a pleasant 55 years old female who presents with his anus, rule out cardiac causes. Cardiology consult. Vitamin B12 are placed Discussed the case with the neurology service today, patient is cleared for discharge from their perspective Labs and medication were reviewed.. Continue same treatment. Continue with symptomatic treatment. Resume home medication. Monitor lytes and vitals. DVT and GI prophylaxis. Further recommendationsas per clinical course of the patient DVT prophylaxis: Subcutaneous heparin GI Prophylaxis: Ppi
[2020-08-11 20:27] LABS: Glucose,Whole Blood 196 mg/dL (75-99)
[2020-08-11] MEDS: HEPARIN SODIUM,PORCINE 5,000 UNIT/ML 1 ML VIAL SQ SCH (20:32)
[2020-08-11] MEDS: ATORVASTATIN 40 MG TAB PO SCH (20:32)
[2020-08-11] MEDS: PANTOPRAZOLE 40 MG TABLET PO SCH (20:32)
[2020-08-11] MEDS: PRAMIPEXOLE 1 MG TAB PO SCH (20:32)
[2020-08-11] MEDS: BACLOFEN 10 MG TAB PO PRN (20:32)
[2020-08-12] MEDS: LEVOTHYROXINE 25 MCG TAB PO SCH (06:22)
[2020-08-12 06:25] LABS: Glucose,Whole Blood 118 mg/dL (75-99)
[2020-08-12] MEDS: ALBUTEROL NEBULIZED 2.5 MG/3 ML INHALATION PRN ×2 (07:30→15:50)
[2020-08-12] MEDS: PANTOPRAZOLE 40 MG TABLET PO SCH (08:20)
[2020-08-12] MEDS: ASPIRIN 81 MG PO SCH (08:20)
[2020-08-12] MEDS: CHOLECALCIFEROL 1,000 UNIT TAB PO SCH (08:20)
[2020-08-12] MEDS: GABAPENTIN 300 MG CAP PO SCH (08:20)
[2020-08-12] MEDS: lisinopriL 20 MG TAB PO SCH (08:20)
[2020-08-12] MEDS: amLODIPine 10 MG TAB PO SCH (08:20)
[2020-08-12] MEDS: FOLIC ACID 1 MG TAB PO SCH (08:20)
[2020-08-12] MEDS: EZETIMIBE 10 MG TAB PO SCH (08:20)
[2020-08-12] MEDS: methylPREDNISolone 4 MG TAB TAPER PO SCH (08:21)
[2020-08-12] MEDS: LINAGLIPTIN 5 MG TABLET PO SCH (08:21)
[2020-08-12] MEDS: HEPARIN SODIUM,PORCINE 5,000 UNIT/ML 1 ML VIAL SQ SCH (08:21)
[2020-08-12 08:32] LABS: Basophils # (A) 0.1 k/uL (0-0.2); Basophils % (A) 1 %; Eosinophils # (A) 0.1 k/uL (0-0.7); Eosinophils % (A) 1 %; HCT 48.1 % (34.0-46.0); HGB 15.8 gm/dL (11.4-16.0); Lymphocytes # (A) 3.1 k/uL (1.0-4.8); Lymphocytes % (A) 28 %; Mean Platelet Volume 8.2; Monocytes # (A) 0.4 k/uL (0-1.0); Monocytes % (A) 4 %; Neutrophils # (A) 7.1 k/uL (1.3-7.7); Neutrophils % (A) 65 %; Platelet Count 206 k/uL (150-450); RBC 5.11 m/uL (3.80-5.40); RDW 12.4 % (11.5-15.5); WBC 10.9 k/uL (3.8-10.6)
[2020-08-12 08:53] LABS: African American GFR (CKD) >90 (>60 ml/min/1.73 sqM); Anion Gap 8 mmol/L; Blood Urea Nitrogen 15 mg/dL (7-17); Calcium 9.4 mg/dL (8.4-10.2); Carbon Dioxide 26 mmol/L (22-30); Chloride 106 mmol/L (98-107); Glucose 200 mg/dL (74-99); Non-African American GFR(CKD) >90 (>60 ml/min/1.73 sqM); Sodium 140 mmol/L (137-145)
[2020-08-12 11:40] LABS: Glucose,Whole Blood 127 mg/dL (75-99)
--- NOTE | 2020-08-12 13:42 | P.CRDCN ---
History of Present Illness Consult date: 08/12/20 History of present illness: CHIEF COMPLAINT: LVH HISTORY OF PRESENT ILLNESS: This is a 55 -year old female with a past medical history significant for diabetes mellitus, hyperlipidemia, and hypothyroidism. Patient follows in the office with Dr. Romo. We have been asked to see the patient in consultation for severe LVH. Patient examined at the bedside. Patient is admitted to the hospital with vertigo. She had an echocardiogram completed at the hospital revealing EF 55-60% and severe LVH. Patient states she saw Dr. Romo recently and had a nuclear stress test completed at the office. She is unsure of the results. She currently denies chest pain or pressure. Denies shortness of breath. DIAGNOSTICS: EKG reveals sinus bradycardia Chest xray negative for acute process Carotid Doppler: No significant stenosis seen in either internal carotid artery Echocardiogram: Severe concentric left ventricular hypertrophy. Ejection fraction 55-60%. Mild mitral regurgitation and mild tricuspid regurgitation. Laboratory data: WBC 10.9. Hemoglobin 15.8. Platelet count 206. Sodium 140. Potassium 4.0. BUN 15. Creatinine 0.62. Current home cardiac medications include aspirin 81 mg daily, Lipitor 40 mg daily and amlodipine/Benzapril 10-20mg daily REVIEW OF SYSTEMS: At the time of my exam: CONSTITUTIONAL: Denies fever or chills. HEENT: Denies blurred vision, vision changes, or eye pain. Denies hemoptysis CARDIOVASCULAR: Denies chest pain, orthopnea, PND or palpitations RESPIRATORY: No shortness of breath. GASTROINTESTINAL: Denies abdominal pain. Denies nausea or vomiting. HEMATOLOGIC: Denies bleeding disorders. GENITOURINARY: Denies any blood in urine. SKIN: Denies pruitis. Denies rash. PHYSICAL EXAM: VITAL SIGNS: Reviewed. GENERAL: Well-developed in no acute distress. HEENT: Head is normocephalic. Pupils are equal, round. Sclerae anicteric. Mucous membranes of the mouth are moist. Neck supple. No JVD or thyromegaly LUNGS: Respirations even and unlabored. Lungs essentially clear to auscultation bilaterally. HEART: Regular rate and rhythm. S1 and S2 heard. + murmur ABDOMEN: Soft. Nondistended. Nontender. EXTREMITIES: Normal range of motion. No clubbing or cyanosis. Peripheral pulses intact. No lower extremity edema NEUROLOGIC: Awake and alert. Oriented x 3. ASSESSMENT: Vertigo Possible pre-syncope Left ventricular hypertrophy Hypertrophic cardiomyopathy, per patient Hypertension Hyperlipidemia Diabetes mellitus, type II PLAN: Patient may be discharged home from a cardiac standpoint She is to follow up with Dr. Romo outpatient Recommend outpatient MRI for definitive diagnosis of hypertrophic cardiomyopathy. Possible event monitor outpatient to assess for ventricular arrh ythmias. Nurse practitioner note has been reviewed by physician. Signing provider agrees with the documented findings, assessment, and plan of care. Past Medical History Past Medical History: Chest Pain / Angina, Diabetes Mellitus, GERD/Reflux, Hyperlipidemia, Thyroid Disorder Additional Past Medical History / Comment(s): STATES CURRENT RECTAL FISSURE AND RECTAL PAIN, blood in stool, hx ulcer, hx gout, frequent urination, states had couple readings of high BP at doctors office but not on rx or dx with h ypertension. SOB with activity, hypertrophic cadrio myopathy History of Any Multi-Drug Resistant Organisms: None Reported Past Surgical History: Cholecystectomy, Hysterectomy, Orthopedic Surgery, Tonsillectomy, Tubal Ligation Additional Past Surgical History / Comment(s): rt foot surgery Past Anesthesia/Blood Transfusion Reactions: Motion Sickness Additional Past Anesthesia/Blood Transfusion Reaction / Comment(s): SPINNING Past Psychological History: No Psychological Hx Reported Smoking Status: Current every day smoker Past Alcohol Use History: Rare Past Drug Use History: Marijuana - Past Family History Father Family Medical History: CVA/TIA, Dementia, Diabetes Mellitus Additional Family Medical History / Comment(s): arthritis, cabg Mother Family Medical History: Diabetes Mellitus Additional Family Medical History / Comment(s): glacoma Medications and Allergies Home Medications Medication Instructions Recorded Confirmed Type [place]-3 Fatty Acids/Fish Oil [Fish 1 cap PO DAILY 08/10/20 08/10/20 History Oil 1,000 mg Softgel] Ubidecarenone [Co Q-10] 300 mg PO DAILY 08/10/20 08/10/20 History Acetaminophen Tab [Tylenol] 650 mg PO Q6HR PRN #0 tab 08/11/20 Rx Albuterol Sulfate [Ventolin HFA] 2 puff INHALATION RT-Q4H PRN #1 08/11/20 Rx inhaler Aspirin 81 mg PO DAILY #30 chew 08/11/20 Rx Atorvastatin [Lipitor] 40 mg PO HS #30 tab 08/11/20 Rx Baclofen [Lioresal] 20 mg PO BID PRN #60 tab 08/11/20 Rx Calcium Carbonate/Vitamin D3 1 each PO BID #60 tablet 08/11/20 Rx [Calcium 500 mg-Vit D3 5 Mcg (200 Unit)] Ezetimibe [Zetia] 10 mg PO DAILY #30 tab 08/11/20 Rx Folic Acid 0.8 mg PO DAILY #30 cap 08/11/20 Rx Gabapentin [Neurontin] 300 mg PO TID #90 cap 08/11/20 Rx Levothyroxine Sodium [Synthroid] 25 mcg PO DAILY #30 tab 08/11/20 Rx Meclizine [Antivert] 25 mg PO TID PRN #15 tab 08/11/20 Rx Omeprazole [PriLOSEC] 20 mg PO AC-BID #60 cap 08/11/20 Rx Ondansetron HCl [Zofran] 1 - 2 mg PO Q8H PRN #10 tab 08/11/20 Rx Pramipexole [Mirapex] 1 mg PO HS #30 tab 08/11/20 Rx SUMAtriptan SUCCINATE [Imitrex] 25 mg PO BID PRN #30 tab 08/11/20 Rx Thiamine [Vitamin B-1] 100 mg PO DAILY #30 tablet 08/11/20 Rx amLODIPine BESYLATE/BENAZEPRIL 1 cap PO DAILY #30 cap 08/11/20 Rx [Lotrel 10-20 MG] sitaGLIPtin PHOSPHATE [Januvia] 50 mg PO DAILY #30 tab 08/11/20 Rx Allergies Allergy/AdvReac Type Severity Reaction Status Date / Time No Known Allergies Allergy Verified 08/10/20 12:34 Physical Exam Vitals: Vital Signs Temp Pulse Pulse Resp BP Pulse Ox 08/12/20 08:40 98.1 F 77 16 148/84 96 08/12/20 07:42 69 08/12/20 07:34 67 08/12/20 03:30 98.5 F 67 16 154/80 97 08/11/20 20:00 16 08/11/20 19:59 98.2 F 70 16 156/88 95 08/11/20 14:45 98.0 F 60 16 151/85 97 Intake and Output 08/11/20 08/12/20 08/12/20 22:59 06:59 14:59 Other: Voiding Method Toilet Toilet # Voids 1 1 Results 08/12/20 08:00 08/12/20 08:00 CBC 08/12/20 Range/Units 08:00 WBC 10.9 H (3.8-10.6) k/uL RBC 5.11 (3.80-5.40) m/uL Hgb 15.8 (11.4-16.0) gm/dL Hct 48.1 H (34.0-46.0) % Plt Count 206 (150-450) k/uL Comprehensive Metabolic Panel 08/12/20 Range/Units 08:00 Sodium 140 (137-145) mmol/L Potassium 4.0 (3.5-5.1) mmol/L Chloride 106 (98-107) mmol/L Carbon Dioxide 26 (22-30) mmol/L BUN 15 (7-17) mg/dL Creatinine 0.62 (0.52-1.04) mg/dL Glucose 200 H (74-99) mg/dL Calcium 9.4 (8.4-10.2) mg/dL Current Medications Generic Name Dose Route Start Last Admin Trade Name Freq PRN Reason Stop Dose Admin Acetaminophen 650 mg 08/10/20 13:56 Acetaminophen Tab 325 Mg Tab PO Q6HR PRN Mild Pain or Fever > 100.5 Albuterol Sulfate 2.5 mg 08/10/20 19:24 08/12/20 07:30 Albuterol Nebulized 2.5 Mg/3 Ml INHALATION 2.5 mg RT-Q4H PRN Administration Shortness Of Breath Or Wheezing Amlodipine Besylate 10 mg 08/11/20 09:00 08/12/20 08:20 Amlodipine 10 Mg Tab PO 10 mg DAILY ES Administration Aspirin 81 mg 08/11/20 09:00 08/12/20 08:20 Aspirin 81 Mg PO 81 mg DAILY ES Administration Atorvastatin Calcium 40 mg 08/10/20 21:00 08/11/20 20:32 Atorvastatin 40 Mg Tab PO 40 mg HS ES Administration Baclofen 20 mg 08/10/20 19:24 08/11/20 20:32 Baclofen 10 Mg Tab PO 20 mg BID PRN Administration Muscle Spasm Cholecalciferol 4,000 unit 08/11/20 09:00 08/12/20 08:20 Cholecalciferol 1,000 Unit Tab PO 4,000 unit DAILY ES Administration Cyanocobalamin 1,000 mcg 08/11/20 21:00 08/11/20 20:33 Cyanocobalamin 1,000 Mcg/Ml 1 Ml Vial IM 08/13/20 23:59 1,000 mcg 2100 ES Administration Ezetimibe 10 mg 08/11/20 09:00 08/12/20 08:20 Ezetimibe 10 Mg Tab PO 10 mg DAILY ES Administration Folic Acid 1 mg 08/11/20 09:00 08/12/20 08:20 Folic Acid 1 Mg Tab PO 1 mg DAILY ES Administration Gabapentin 300 mg 08/10/20 22:00 08/12/20 08:20 Gabapentin 300 Mg Cap PO 300 mg TID ES Administration Heparin Sodium (Porcine) 5,000 unit 08/11/20 21:00 08/12/20 08:21 Heparin Sodium,Porcine 5,000 Unit/Ml 1 Ml Vial SQ 5,000 unit Q12HR ES Administration Ibuprofen 800 mg 08/10/20 19:24 Ibuprofen 800 Mg Tab PO Q8H PRN Pain Levothyroxine Sodium 25 mcg 08/11/20 06:30 08/12/20 06:22 Levothyroxine 25 Mcg Tab PO 25 mcg DAILY@0630 ES Administration Linagliptin 5 mg 08/11/20 09:00 08/12/20 08:21 Linagliptin 5 Mg Tablet PO 5 mg DAILY ES Administration Lisinopril 20 mg 08/11/20 09:00 08/12/20 08:20 Lisinopril 20 Mg Tab PO 20 mg DAILY ES Administration Lorazepam 0.5 mg 08/10/20 13:56 Lorazepam 2 Mg/Ml Inj IV Q6HR PRN Anxiety Meclizine HCl 25 mg 08/10/20 13:56 Meclizine 25 Mg Tab PO TID PRN Vertigo Methylprednisolone 20 mg 08/11/20 09:00 08/12/20 08:21 Methylprednisolone 4 Mg Tab Taper PO 08/17/20 08:59 20 mg DAILY ES Administration Taper Naloxone HCl 0.2 mg 08/10/20 13:56 Naloxone 0.4 Mg/Ml 1 Ml Vial IV Q2M PRN Opioid Reversal Ondansetron HCl 4 mg 08/10/20 19:30 Ondansetron 4 Mg/2 Ml Vial IVP Q6HR PRN Nausea And Vomiting Pantoprazole Sodium 40 mg 08/11/20 21:00 08/12/20 08:20 Pantoprazole 40 Mg Tablet PO 40 mg BID ES Administration Pramipexole Dihydrochloride 1 mg 08/10/20 21:00 08/11/20 20:32 Pramipexole 1 Mg Tab PO 1 mg HS ES Administration Sumatriptan Succinate 25 mg 08/10/20 19:24 Sumatriptan Succinate 25 Mg Tab PO BID PRN Migraine Headache Intake and Output 08/11/20 08/12/20 08/12/20 22:59 06:59 14:59 Other: Voiding Method Toilet Toilet # Voids 1 1 08/12/20 08:00 08/12/20 08:00
[2020-08-12 15:04] VITALS: BP 155/79; TEMP 97.9
--- NOTE | 2020-08-12 15:13 | P.PN ---
Subjective Progress Note Date: 08/12/20 Patient feels fine, wants to go home, vertigo resolved. However when she bends down and gets up, feels dizzy. Objective - Vital Signs Vital signs: Vital Signs Temp 97.9 F 08/12/20 15:00 Pulse 75 08/12/20 15:00 Resp 16 08/12/20 15:00 BP 155/79 08/12/20 15:00 Pulse Ox 96 08/12/20 15:00 Intake & Output 08/11/20 08/12/20 08/12/20 18:59 06:59 18:59 Other: Voiding Method Toilet # Voids 1 1 1 - Constitutional Constitutional Comment(s): Mental status, speech and language functions are normal. Cranial nerves normal. Gait normal. No ataxia. Muscle strength normal. - Labs CBC & Chem 7: 08/12/20 08:00 08/12/20 08:00 Labs: Abnormal Lab Results - Last 24 Hours (Table) 08/11/20 08/11/20 08/12/20 Range/Units 16:39 20:25 06:23 WBC (3.8-10.6) k/uL Hct (34.0-46.0) % Glucose (74-99) mg/dL POC Glucose (mg/dL) 182 H 196 H 118 H (75-99) mg/dL 08/12/20 08/12/20 08/12/20 Range/Units 08:00 08:00 11:38 WBC 10.9 H (3.8-10.6) k/uL Hct 48.1 H (34.0-46.0) % Glucose 200 H (74-99) mg/dL POC Glucose (mg/dL) 127 H (75-99) mg/dL Assessment and Plan Assessment: * 55-year-old female with second episode of vertigo, lasting for about 4 hours. The first one occurred about 3 years ago also lasted for 4 hours. Her examination is significant for mild nystagmus, otherwise nonfocal. Computed tomography scan of the head revealed some sinus congestion involving the left ethmoid air cells. Suspect peripheral vascular dysfunction. Central cause less likely. * Hypertension * Diabetes * Dyslipidemia * Tobacco use Plan: * Consider Medrol Dosepak. * Antivert as needed. * Carotid Doppler showed no significant ICA stenosis. Antegrade flow in both vertebral arteries * 2-D echo showed normal left-ventricular size. Severe concentric LVH. EF is 55-60%. Minimal MR. No obvious embolic source identified. * Cardiology seen the patient and recommended outpatient MRI to rule out HOCM and event monitor to rule out arrhythmia. * B12 253, which is low, folate 20.2, A1c 6.0. We will start B12 replacement. * Patient suggested to continue aspirin 81 mg on a regular basis. She takes low-dose aspirin about twice a week. She should take it on a daily basis because of presence of multiple vascular risk factors. * Complete tobacco cessation. Patient states "it's easy said than done", but will try. * Neurologically clear for discharge.
[2020-08-12 16:02] VITALS: PULSE 76
--- NOTE | 2020-08-13 00:06 | P.DS ---
Providers Date of admission: 08/11/20 15:54 Attending physician: Missael Madrigal MD Consults: 08/10/20 13:57 Consult Physician Routine Consulting Provider: Yasemin Leos Consult Reason/Comments: Vertigo Do you want consulting provider notified?: Yes 08/11/20 14:05 Consult Physician Urgent Consulting Provider: Wero Viveros Consult Reason/Comments: severe LVH Do you want consulting provider notified?: Yes Primary care physician: [facility] Course: Dizziness with combined sence of presyncope and vertigo, neurological causes ruled out, could be related to heart disease follow-up with outpatient automatic spreader operator Hypertrophic cardiomyopathy, need outpatient MRI of the heart Low normal B-12, replaced Diabetes mellitus Hyperlipidemia Gastroesophageal reflux disease Hypothyroidism History of gout Hospital course: This is a pleasant 55 years old female with multiple medical problems as below. Presents because of feeling vertigo and the room was spinning so hard of one-day duration associated with some nausea vomiting, no abdominal pain or chest pain or dyspnea. No numbness or weakness. No slurred speech. CT of the brain is negative for acute intracranial process, she was sinus congestion. Patient was treated with Medrol Dosepak and Ativan as needed. And her symptoms are significantly improved and no more dizziness or vertigo. On the day of discharge her vertigo is completely resolved, no more dizziness, no nausea vomiting, she does have a little tingling in the back of her head. No fever. No chest pain or dyspnea. No change in urine or bowel habits. No swallowing difficulty and she tolerates diet well. Patient has been evaluated by neurologist, carotid duplex is negative for significant stenosis. Echocardiogram: Ejection fraction 55-60%, severe ventricular hypertrophy, Dr. Tracey automatic spreader operator was consulted and I discussed the case with him, he informed me the patient is stable from cardiology standpoint for discharge however she needs outpatient MRI of the heart to assess the degree of her hypertrophic cardiomyopathy and to see if it's related to the symptoms he had on presentation. Patient informed with the above recommendation and agrees with the appointments made for her with Dr. Romo and states she will follow up Patient was cleared for discharge by neurologist and Dr. Tracey the automatic spreader operator Problems and management plan were discussed with the patient and he verbalized understanding and acceptance Patient was found stable and can be discharged home however he needs follow-up as an outpatient. Patient was instructed to follow up with PCP Dr. Bills within one week and patient agrees. Patient also was instructed to follow up with neurologist as an outpatient in 1-2 weeks, 3 names of neurologist are provided for her including Dr. Stevens, Dr. Raman and Dr. Wang. Patient agrees with this plan and said she'll call for the appointments. Patient agrees with the appointments made for her with Dr. Jones, Dr. Bills. Gen: patient is a AAOx3, no distress CVS: S1-S2, RRR, no murmur Lungs: B/L CTA, no wheezing Abdomen: soft, no distention, no tenderness, positive bowel sounds Extremity: no leg edema or induration Time spent more than 35 minutes Patient Condition at Discharge: Stable Plan - Discharge Summary Discharge Rx Participant: Yes New Discharge Prescriptions: New Meclizine [Antivert] 25 mg PO TID PRN #15 tab PRN Reason: Vertigo Aspirin 81 mg PO DAILY #30 chew Acetaminophen Tab [Tylenol] 650 mg PO Q6HR PRN #0 tab PRN Reason: Mild Pain Or Fever > 100.5 Calcium Carbonate/Vitamin D3 [Calcium 500 mg-Vit D3 5 Mcg (200 Unit)] 1 each PO BID #60 tablet Omeprazole [PriLOSEC] 20 mg PO AC-BID #60 cap Thiamine [Vitamin B-1] 100 mg PO DAILY #30 tablet Continue Ubidecarenone [Co Q-10] 300 mg PO DAILY [place]-3 Fatty Acids/Fish Oil [Fish Oil 1,000 mg Softgel] 1 cap PO DAILY Folic Acid 0.8 mg PO DAILY #30 cap SUMAtriptan SUCCINATE [Imitrex] 25 mg PO BID PRN #30 tab PRN Reason: Migraine Headache sitaGLIPtin PHOSPHATE [Januvia] 50 mg PO DAILY #30 tab Baclofen [Lioresal] 20 mg PO BID PRN #60 tab PRN Reason: Muscle Spasm Atorvastatin [Lipitor] 40 mg PO HS #30 tab amLODIPine BESYLATE/BENAZEPRIL [Lotrel 10-20 MG] 1 cap PO DAILY #30 cap Pramipexole [Mirapex] 1 mg PO HS #30 tab Gabapentin [Neurontin] 300 mg PO TID #90 cap Levothyroxine Sodium [Synthroid] 25 mcg PO DAILY #30 tab Albuterol Sulfate [Ventolin HFA] 2 puff INHALATION RT-Q4H PRN #1 inhaler PRN Reason: Shortness Of Breath Or Wheezing Ezetimibe [Zetia] 10 mg PO DAILY #30 tab Ondansetron HCl [Zofran] 1 - 2 mg PO Q8H PRN #10 tab PRN Reason: Nausea And Vomiting Discontinued Omeprazole [PriLOSEC] 20 mg PO BID Ibuprofen [Motrin] 800 mg PO Q8H PRN PRN Reason: Pain Cholecalciferol [Vitamin D3 (25 Mcg = 1000 Iu)] 4,000 unit PO DAILY Discharge Medication List [place]-3 Fatty Acids/Fish Oil [Fish Oil 1,000 mg Softgel] 1 cap PO DAILY 08/10/20 [History] Ubidecarenone [Co Q-10] 300 mg PO DAILY 08/10/20 [History] Acetaminophen Tab [Tylenol] 650 mg PO Q6HR PRN #0 tab 08/11/20 [Rx] Albuterol Sulfate [Ventolin HFA] 2 puff INHALATION RT-Q4H PRN #1 inhaler 08/11/20 [Rx] Aspirin 81 mg PO DAILY #30 chew 08/11/20 [Rx] Atorvastatin [Lipitor] 40 mg PO HS #30 tab 08/11/20 [Rx] Baclofen [Lioresal] 20 mg PO BID PRN #60 tab 08/11/20 [Rx] Calcium Carbonate/Vitamin D3 [Calcium 500 mg-Vit D3 5 Mcg (200 Unit)] 1 each PO BID #60 tablet 08/11/20 [Rx] Ezetimibe [Zetia] 10 mg PO DAILY #30 tab 08/11/20 [Rx] Folic Acid 0.8 mg PO DAILY #30 cap 08/11/20 [Rx] Gabapentin [Neurontin] 300 mg PO TID #90 cap 08/11/20 [Rx] Levothyroxine Sodium [Synthroid] 25 mcg PO DAILY #30 tab 08/11/20 [Rx] Meclizine [Antivert] 25 mg PO TID PRN #15 tab 08/11/20 [Rx] Omeprazole [PriLOSEC] 20 mg PO AC-BID #60 cap 08/11/20 [Rx] Ondansetron HCl [Zofran] 1 - 2 mg PO Q8H PRN #10 tab 08/11/20 [Rx] Pramipexole [Mirapex] 1 mg PO HS #30 tab 08/11/20 [Rx] SUMAtriptan SUCCINATE [Imitrex] 25 mg PO BID PRN #30 tab 08/11/20 [Rx] Thiamine [Vitamin B-1] 100 mg PO DAILY #30 tablet 08/11/20 [Rx] amLODIPine BESYLATE/BENAZEPRIL [Lotrel 10-20 MG] 1 cap PO DAILY #30 cap 08/11/20 [Rx] sitaGLIPtin PHOSPHATE [Januvia] 50 mg PO DAILY #30 tab 08/11/20 [Rx] Follow up Appointment(s)/Referral(s): Russel Raman MD [Medical Doctor] - 10 Days (neurologist ) Reese Stevens MD [STAFF PHYSICIAN] - 10 Days (neurologist ) Fernando Wang DO [STAFF PHYSICIAN] - 10 Days (neurologist ) Michael Bills DO [Primary Care Provider] - 08/24/20 11:00 am (With [facility]- please call and change the appointment time if this does not work for you. ) Fredo Romo MD [STAFF PHYSICIAN] - 08/19/20 10:30 am (Your automatic spreader operator , we recommend to do MRI of the heart as outpatient ) Patient Instructions/Handouts: Vertigo (DC) Activity/Diet/Wound Care/Special Instructions: Heart healthy diet activity is restricted until you see your doctor Discharge Disposition: HOME SELF-CARE
== END 2020-08-12 16:10 | disposition home or self-care (01) ==
LOC: EC 10:52 → 1SOBS 13:56 → INTOOBSV 08-11 15:54 → OBSVTOIN 08-11 15:54 → UNDODISIN 08-12 16:10
PROVIDERS: ADMIT Internal Medicine; ATTEND Internal Medicine
DX: R42 Dizziness and giddiness (principal); R51.9 Headache, unspecified; R53.1 Weakness; E53.8 Deficiency of other specified B group vitamins; I42.2 Other hypertrophic cardiomyopathy; E11.9 Type 2 diabetes mellitus without complications; K21.9 Gastro-esophageal reflux disease without esophagitis; E78.5 Hyperlipidemia, unspecified; H55.00 Unspecified nystagmus; E03.9 Hypothyroidism, unspecified; D72.829 Elevated white blood cell count, unspecified; M19.90 Unspecified osteoarthritis, unspecified site; K60.2 Anal fissure, unspecified; F17.210 Nicotine dependence, cigarettes, uncomplicated; E66.9 Obesity, unspecified; H93.19 Tinnitus, unspecified ear; Z68.30 Body mass index [BMI] 30.0-30.9, adult; R35.0 Frequency of micturition; M10.9 Gout, unspecified; Z90.49 Acquired absence of other specified parts of digestive tract; Z90.710 Acquired absence of both cervix and uterus; Z98.51 Tubal ligation status; Z90.89 Acquired absence of other organs; R07.9 Chest pain, unspecified; I10 Essential (primary) hypertension; Z87.19 Personal history of other diseases of the digestive system; Z82.3 Family history of stroke; Z83.3 Family history of diabetes mellitus; Z81.8 Family history of other mental and behavioral disorders; Z82.61 Family history of arthritis; Z82.49 Family history of ischemic heart disease and other diseases of the circulatory system; Z79.84 Long term (current) use of oral hypoglycemic drugs; Z79.890 Hormone replacement therapy; Z79.899 Other long term (current) drug therapy; Z79.82 Long term (current) use of aspirin
CPT/HCPCS: 96361 ×2; 96372 ×2; 96375; 96376; 96374; 99285; 36415; 94640; 93005; 93306; 80053; 80048 ×2; 82607; 82746; 83605; 83735; 84484; 85025 ×3; 85610; 85730; 81001; 83036; 71046; 93880; 70450; G0378 ×3; J3420; J1644 ×2; J2405; J7509 ×2; C9113 ×2

== ENCOUNTER → 2020-12-02 | Outpatient (CLI) | payer BC ==
[2020-12-02 14:04] LABS: African American GFR (CKD) >90 (>60 ml/min/1.73 sqM); Blood Urea Nitrogen 25 mg/dL (7-17); Non-African American GFR(CKD) 85 (>60 ml/min/1.73 sqM)
--- NOTE | 2020-12-02 15:27 | CT ---
EXAMINATION TYPE: CT brain wo/w con DATE OF EXAM: 12/02/2020 COMPARISON: 08/10/2020 HISTORY: dizziness CT DLP: 1948.2 mGycm Automated exposure control for dose reduction was used. CONTRAST: CT scan of the head is performed with IV Contrast, patient injected with 100 mL of Isovue 300. FINDINGS: There is no abnormal enhancing mass or midline shift identified. The ventricles and sulci are within normal limits in size. The globes are intact and the visualized sinuses are clear. Partially empty sella turcica. Calvarium intact scalloping of the inner margin and inner table of the right parietal bone appears chronic may be on the basis of pacchionian granulation. No enhancement. Linear enhanceme nt in the left parietal lobe measuring 8 mm. IMPRESSION: 1. Partially empty sella turcica. 2. Linear enhancement in the left parietal lobe likely in the basis of a venous angioma. Confirmation could be obtained with MRI
== END | disposition home or self-care (01) ==
LOC: RADCTMAIN 13:10
PROVIDERS: ATTEND Psychiatry & Neurology Neurology
DX: R90.89 Other abnormal findings on diagnostic imaging of central nervous system (principal); E23.6 Other disorders of pituitary gland; E11.9 Type 2 diabetes mellitus without complications
CPT/HCPCS: 82565; 84520; 70470; 36415; Q9967

== ENCOUNTER → 2020-12-14 | Outpatient (CLI) | payer BC ==
--- NOTE | 2020-12-15 09:53 | MM ---
Reason for exam: additional evaluation requested from prior study. Last mammogram was performed 2 years and 2 months ago. History: Patient is postmenopausal and has history of endometrial cancer at age 21. Physical Findings: Nurse did not find any significant physical abnormalities on exam. MG 3D Diag Mammo W/Cad BEATA Bilateral CC and MLO view(s) were taken. Prior study comparison: October 01, 2018, bilateral MG 3d screening mammo w/cad. May 30, 2017, bilateral MG 3d screening mammo w/cad. There are scattered fibroglandular densities. There is chronic nodularity in the right breast. No significant new findings when compared with previous films. These results were verbally communicated with the patient and result sheet given to the patient on 12/14/20. ASSESSMENT: Benign, BI-RAD 2 RECOMMENDATION: Routine screening mammogram of both breasts in 1 year. Manage patient on a clinical basis.
== END | disposition home or self-care (01) ==
LOC: RADMAMWWP 13:56
PROVIDERS: ATTEND Family Medicine
DX: N64.4 Mastodynia (principal)
CPT/HCPCS: 77062; 77066

== ENCOUNTER → 2021-02-18 | Outpatient (CLI) | payer BC ==
--- NOTE | 2021-02-18 11:33 | XR ---
EXAMINATION TYPE: XR facial bones limited DATE OF EXAM: 02/18/2021 COMPARISON: CT brain December 02, 2020 HISTORY: Dizziness and sleepiness with pain since facial injury 2 weeks ago. TECHNIQUE: Facial bones limited with Perkins and Sharma frontal view and true lateral projection. FINDINGS: Punctate densities overlying region of right orbit corresponding to posterior scalp subcuta neous foreign body on recent CT. Orbital neri and floors remain intact. Visualized paranasal sinuses are grossly clear. Mandible is intact. IMPRESSION: No acute displaced facial bone fracture.
== END | disposition home or self-care (01) ==
LOC: RADXRYALE 10:59
PROVIDERS: ATTEND Physician Assistant
DX: S09.93XA Unspecified injury of face, initial encounter (principal)
CPT/HCPCS: 70140

== ENCOUNTER → 2021-05-21 | Outpatient (CLI) | payer OTHER ==
--- NOTE | 2021-05-21 10:15 | CT ---
EXAMINATION TYPE: CT lumbar spine wo con DATE OF EXAM: 05/21/2021 COMPARISON: None HISTORY: 56-year-old female Low back pain TECHNIQUE: Contiguous axial scanning of the lumbar spine without IV contrast. Coronal and sagittal re constructions performed. CT DLP: 1375.5 mGycm Automated exposure control for dose reduction was used. FINDINGS: Vertebral body heights are preserved. There is advanced hypertrophic facet arthropathy mid to lower lumbar spine with grade 1 anterolisthes is of L4-L5. Mild disc bulging L2-L5 levels. No large focal disc herniation or significant spinal canal stenosis by CT. Changes result in mild overall neuroforaminal stenosis at L4-L5 and minimal inferior foraminal narrow ing at L2-L3 and L3-L4 on both sides. No prevertebral or paravertebral soft tissue abnormality seen. IMPRESSION: 1. ADVANCED HYPERTROPHIC FACET ARTHROPATHY MID TO LOWER LUMBAR SPINE. 2. DEGENERATIVE GRADE 1 ANTEROLISTHESIS L4-L5. 3. CHANGES RESULT IN MILD BILATERAL NEUROFORAMINAL STENOSIS AT L4-L5. MINIMAL INFERIOR FORAMINAL NARR OWING ON BOTH SIDES AT L2-L3 AND L3-L4. 4. BY CT, NO LARGE FOCAL DISC HERNIATION OR SIGNIFICANT SPINAL CANAL STENOSIS.
== END | disposition home or self-care (01) ==
LOC: RADCTMAIN 06:21
PROVIDERS: ATTEND Psychiatry & Neurology Neurology
DX: M47.896 Other spondylosis, lumbar region (principal); M51.36 Other intervertebral disc degeneration, lumbar region
CPT/HCPCS: 72131

== ENCOUNTER 2021-12-07 21:13 | Observation (INO) | payer OTHER ==
[2021-12-07 21:34] LABS: Glucose,Whole Blood 500 mg/dL (75-99)
[2021-12-08] MEDS ORDERED: GABAPENTIN 300 MG CAP ONE (00:54)
[2021-12-08] MEDS ORDERED: BACLOFEN 10 MG TAB ONE (00:54)
[2021-12-08] MEDS ORDERED: GABAPENTIN 300 MG CAP PO ONE (01:00)
[2021-12-08] MEDS ORDERED: SODIUM CHLORIDE 0.9% 1,000 ML IV ONE (01:00)
[2021-12-08] MEDS ORDERED: BACLOFEN 10 MG TAB PO ONE (01:00)
[2021-12-08 02:41] LABS: Glucose,Whole Blood 355 mg/dL (75-99)
[2021-12-08] MEDS ORDERED: ASPIRIN 81 MG PO STA (03:41)
--- NOTE | 2021-12-08 03:41 | ED ---
General Adult HPI - General Chief complaint: Recheck/Abnormal Lab/Rx Stated complaint: high blood sugar Source: patient, RN notes reviewed Mode of arrival: wheelchair Limitations: no limitations - History of Present Illness Initial comments: Patient presents to the emergency times a day with complaint of hyperglycemia. Blood sugar was in excess of 500 at home. Patient received an infusion of a corticosteroid at [facility] earlier today for an inner ear issue. States she then went home and was checking her blood sugar was quite elevated. She also complains of dry mouth. No headache, no fever or chills, no changes in vision or hearing, no sore throat or difficulty with speech, no neck pain, no chest pain or shortness of breath, no abdominal pain, no nausea or vomiting, no changes in urination or bowel movements, no numbness or tingling, no extremity pain, no skin rashes or lesions. - Related Data Home Medications Medication Instructions Recorded Confirmed [place]-3 Fatty Acids/Fish Oil [Fish 1 cap PO DAILY 08/10/20 12/08/21 Oil 1,000 mg Softgel] Baclofen [Lioresal] 20 mg PO HS 12/08/21 12/08/21 Calcium Carbonate/Vitamin D3 2 cap PO DAILY 12/08/21 12/08/21 [Calcium 600 mg-D3 10 Mcg (400 Iu)] Cholecalciferol [Vitamin D3 (25 100 mcg PO DAILY 12/08/21 12/08/21 Mcg = 1000 Iu)] Cyanocobalamin (Vitamin B-12) 1,000 mcg PO DAILY 12/08/21 12/08/21 [Vitamin B-12] Dicyclomine HCl 10 mg PO TID PRN 12/08/21 12/08/21 Ezetimibe [Zetia] 10 mg PO DAILY 12/08/21 12/08/21 Furosemide [Lasix] 20 mg PO DAILY 12/08/21 12/08/21 Metoprolol Succinate [Toprol XL] 100 mg PO DAILY 12/08/21 12/08/21 hydrOXYzine HCL [Atarax] 50 mg PO HS 12/08/21 12/08/21 ondansetron HCL [Zofran] 4 mg PO Q8H PRN 12/08/21 12/08/21 Previous Rx's Medication Instructions Recorded Albuterol Sulfate [Ventolin HFA] 2 puff INHALATION RT-Q4H PRN #1 10/20/20 inhaler Atorvastatin [Lipitor] 40 mg PO HS #30 tab 08/11/20 Gabapentin [Neurontin] 300 mg PO TID #90 cap 08/11/20 Levothyroxine Sodium [Synthroid] 25 mcg PO DAILY #30 tab 08/11/20 Meclizine [Antivert] 25 mg PO TID PRN #15 tab 08/11/20 Omeprazole [PriLOSEC] 20 mg PO AC-BID #60 cap 08/11/20 Pramipexole [Mirapex] 1 mg PO HS #30 tab 08/11/20 SUMAtriptan SUCCINATE [Imitrex] 25 mg PO BID PRN #30 tab 08/11/20 amLODIPine BESYLATE/BENAZEPRIL 1 cap PO DAILY #30 cap 08/11/20 [Lotrel 10-20 MG] sitaGLIPtin PHOSPHATE [Januvia] 50 mg PO DAILY #30 tab 08/11/20 Allergies Allergy/AdvReac Type Severity Reaction Status Date / Time hydrocodone [From [place]] Allergy itchy/blist Verified 12/08/21 06:32 ers codeine AdvReac see Verified 12/08/21 06:32 [From Tylenol-Codeine #3] comments dapagliflozin [From Farxiga] AdvReac vertigo & Verified 12/08/21 06:32 dry mouth Review of Systems ROS Statement: Those systems with pertinent positive or pertinent negative responses have been documented in the HPI. ROS Other: All systems not noted in ROS Statement are negative. Past Medical History Past Medical History: Chest Pain / Angina, Diabetes Mellitus, GERD/Reflux, Hyperlipidemia, Thyroid Disorder Additional Past Medical History / Comment(s): STATES CURRENT RECTAL FISSURE AND RECTAL PAIN, blood in stool, hx ulcer, hx gout, frequent urination, states had couple readings of high BP at doctors office but not on rx or dx with hypertension. SOB with activity, hypertrophic cadrio myopathy History of Any Multi-Drug Resistant Organisms: None Reported Past Surgical History: Cholecystectomy, Hysterectomy, Orthopedic Surgery, Tonsillectomy, Tubal Ligation Additional Past Surgical History / Comment(s): rt foot surgery Past Anesthesia/Blood Transfusion Reactions: Motion Sickness Additional Past Anesthesia/Blood Transfusion Reaction / Comment(s): SPINNING Past Psychological History: No Psychological Hx Reported Smoking Status: Current every day smoker Past Alcohol Use History: Rare Past Drug Use History: Marijuana - Past Family History Father Family Medical History: CVA/TIA, Dementia, Diabetes Mellitus Additional Family Medical History / Comment(s): arthritis, cabg Mother Family Medical History: Diabetes Mellitus Additional Family Medical History / Comment(s): glacoma General Exam Limitations: no limitations General appearance: alert, in no apparent distress Head exam: Present: atraumatic, normocephalic, normal inspection Eye exam: Present: normal appearance, PERRL, EOMI. Absent: scleral icterus, c onjunctival injection, periorbital swelling ENT exam: Present: normal exam, normal oropharynx, mucous membranes moist, TM's normal bilaterally, normal external ear exam Neck exam: Present: normal inspection. Absent: tenderness, meningismus, lymphadenopathy Respiratory exam: Present: normal lung sounds bilaterally. Absent: respiratory distress, wheezes, rales, rhonchi, stridor Cardiovascular Exam: Present: regular rate, normal rhythm, normal heart sounds. Absent: systolic murmur, diastolic murmur, rubs, gallop, clicks GI/Abdominal exam: Present: soft, normal bowel sounds. Absent: distended, tenderness, guarding, rebound, rigid Extremities exam: Present: normal inspection, full ROM, normal capillary refill. Absent: tenderness, pedal edema, joint swelling, calf tenderness Back exam: Present: normal inspection Neurological exam: Present: alert, oriented X3, CN II-XII intact Psychiatric exam: Present: normal affect, normal mood Skin exam: Present: warm, dry, intact, normal color. Absent: rash Course Vital Signs 12/07/21 12/08/21 12/08/21 21:23 06:05 07:00 Temperature 98.1 F 97.7 F Pulse Rate 80 88 Pulse Rate [ 65 Right Pulse Oximetery] Respiratory 16 16 16 Rate Blood Pressure 130/78 141/95 Blood Pressure 144/77 [Left Arm] O2 Sat by Pulse 95 95 97 Oximetry EKG Findings - EKG Comments: EKG Findings:: Independence deviation, left ventricular hypertrophy, nonspecific ST changes which were seen on the previous study. Q waves seen in aVL - EKG Results: EKG: interpreted by ERMD, sinus rhythm, normal QRS, no acute changes Medical Decision Making - Medical Decision Making Present with hyperglycemia, patient's blood sugar is down in the mid 300s per the family saw her. Patient was treated with hydration. Patient did develop chest pain while she was here in the ER. Aspirin is ordered. EKG ordered. Troponin is pending. Patient endorsed to Dr. Castaneda for further evaluation and disposition. Patient will require obs telemetry. - Lab Data Result diagrams: 12/08/21 09:59 12/08/21 09:59 Lab Results 12/07/21 12/08/21 12/08/21 Range/Units 21:32 00:18 00:30 WBC 13.0 H (3.8-10.6) k/uL RBC 4.48 (3.80-5.40) m/uL Hgb 13.5 (11.4-16.0) gm/dL Hct 40.6 (34.0-46.0) % MCV 90.4 (80.0-100.0) fL MCH 30.1 (25.0-35.0) pg MCHC 33.3 (31.0-37.0) g/dL RDW 12.1 (11.5-15.5) % Plt Count 224 (150-450) k/uL MPV 8.6 Neutrophils % (Manual) 90 % Lymphocytes % (Manual) 10 % Neutrophils # (Manual) 11.70 H (1.3-7.7) k/uL Lymphocytes # (Manual) 1.30 (1.0-4.8) k/uL Nucleated RBCs 0 (0-0) /100 WBC Manual Slide Review Performed VBG pH (7.31-7.41) VBG pCO2 (37-51) mmHg VBG HCO3 (24-28) mmol/L Sodium (137-145) mmol/L Potassium (3.5-5.1) mmol/L Chloride (98-107) mmol/L Carbon Dioxide (22-30) mmol/L Anion Gap mmol/L BUN (7-17) mg/dL Creatinine (0.52-1.04) mg/dL Est GFR (CKD-EPI)AfAm (>60 ml/min/1.73 sqM) Est GFR (CKD-EPI)NonAf (>60 ml/min/1.73 sqM) Glucose (74-99) mg/dL POC Glucose (mg/dL) 500 H 355 H (75-99) mg/dL POC Glu Training Program Developer ID Rosario Flowers Kyle Calcium (8.4-10.2) mg/dL Phosphorus (2.5-4.5) mg/dL Magnesium (1.6-2.3) mg/dL Troponin I (0.000-0.034) ng/mL Urine Color Urine Appearance (Clear) Urine pH (5.0-8.0) Ur Specific [place] (1.001-1.035) Urine Protein (Negative) Urine Glucose (UA) (Negative) Urine Ketones (Negative) Urine Bilirubin (Negative) Urine Urobilinogen (<2.0) mg/dL Acetone, Qual (Negative) 12/08/21 12/08/21 12/08/21 Range/Units 00:30 00:30 00:50 WBC (3.8-10.6) k/uL RBC (3.80-5.40) m/uL Hgb (11.4-16.0) gm/dL Hct (34.0-46.0) % MCV (80.0-100.0) fL MCH (25.0-35.0) pg MCHC (31.0-37.0) g/dL RDW (11.5-15.5) % Plt Count (150-450) k/uL MPV Neutrophils % (Manual) % Lymphocytes % (Manual) % Neutrophils # (Manual) (1.3-7.7) k/uL Lymphocytes # (Manual) (1.0-4.8) k/uL Nucleated RBCs (0-0) /100 WBC Manual Slide Review VBG pH 7.32 (7.31-7.41) VBG pCO2 50 (37-51) mmHg VBG HCO3 25 (24-28) mmol/L Sodium 136 L (137-145) mmol/L Potassium 4.4 (3.5-5.1) mmol/L Chloride 100 (98-107) mmol/L Carbon Dioxide 23 (22-30) mmol/L Anion Gap 13 mmol/L BUN 24 H (7-17) mg/dL Creatinine 0.91 (0.52-1.04) mg/dL Est GFR (CKD-EPI)AfAm 82 (>60 ml/min/1.73 sqM) Est GFR (CKD-EPI)NonAf 71 (>60 ml/min/1.73 sqM) Glucose 355 H (74-99) mg/dL POC Glucose (mg/dL) (75-99) mg/dL POC Glu Training Program Developer ID Calcium 10.4 H (8.4-10.2) mg/dL Phosphorus 4.4 (2.5-4.5) mg/dL Magnesium 1.8 (1.6-2.3) mg/dL Troponin I <0.012 (0.000-0.034) ng/mL Urine Color Urine Appearance (Clear) Urine pH (5.0-8.0) Ur Specific [place] (1.001-1.035) Urine Protein (Negative) Urine Glucose (UA) (Negative) Urine Ketones (Negative) Urine Bilirubin (Negative) Urine Urobilinogen (<2.0) mg/dL Acetone, Qual Negative (Negative) 12/08/21 12/08/21 Range/Units 01:05 04:06 WBC (3.8-10.6) k/uL RBC (3.80-5.40) m/uL Hgb (11.4-16.0) gm/dL Hct (34.0-46.0) % MCV (80.0-100.0) fL MCH (25.0-35.0) pg MCHC (31.0-37.0) g/dL RDW (11.5-15.5) % Plt Count (150-450) k/uL MPV Neutrophils % (Manual) % Lymphocytes % (Manual) % Neutrophils # (Manual) (1.3-7.7) k/uL Lymphocytes # (Manual) (1.0-4.8) k/uL Nucleated RBCs (0-0) /100 WBC Manual Slide Review VBG pH (7.31-7.41) VBG pCO2 (37-51) mmHg VBG HCO3 (24-28) mmol/L Sodium (137-145) mmol/L Potassium (3.5-5.1) mmol/L Chloride (98-107) mmol/L Carbon Dioxide (22-30) mmol/L Anion Gap mmol/L BUN (7-17) mg/dL Creatinine (0.52-1.04) mg/dL Est GFR (CKD-EPI)AfAm (>60 ml/min/1.73 sqM) Est GFR (CKD-EPI)NonAf (>60 ml/min/1.73 sqM) Glucose (74-99) mg/dL POC Glucose (mg/dL) 317 H (75-99) mg/dL POC Glu Training Program Developer ID Alonzo Morris Calcium (8.4-10.2) mg/dL Phosphorus (2.5-4.5) mg/dL Magnesium (1.6-2.3) mg/dL Troponin I (0.000-0.034) ng/mL Urine Color Yellow Urine Appearance Clear (Clear) Urine pH 5.0 (5.0-8.0) Ur Specific [place] 1.032 (1.001-1.035) Urine Protein Negative (Negative) Urine Glucose (UA) 4+ H (Negative) Urine Ketones 1+ H (Negative) Urine Bilirubin Negative (Negative) Urine Urobilinogen 0.2 (<2.0) mg/dL Acetone, Qual (Negative) Disposition Clinical Impression: Hyperglycemia due to type 2 diabetes mellitus, Chest pain Disposition: ADMITTED IP TO THIS HOSP
[2021-12-08 04:10] LABS: Glucose,Whole Blood 317 mg/dL (75-99)
[2021-12-08 05:15] LABS: VBG PH 7.32 (7.31-7.41)
[2021-12-08 05:33] LABS: HCT 40.6 % (34.0-46.0); HGB 13.5 gm/dL (11.4-16.0); MCH 30.1 pg (25.0-35.0); MCHC 33.3 g/dL (31.0-37.0); MCV 90.4 fL (80.0-100.0); Mean Platelet Volume 8.6; Platelet Count 224 k/uL (150-450); RBC 4.48 m/uL (3.80-5.40); RDW 12.1 % (11.5-15.5)
[2021-12-08 05:35] LABS: Neutrophils % (M) 90 %; Nucleated Red Blood Cells 0 /100 WBC (0-0); Total Cells Counted 100
[2021-12-08 05:37] LABS: Appearance,Urine Clear (Clear); Color,Urine Yellow; Glucose,Urine (UA) 4+ (Negative); Protein,Urine Negative (Negative); Specific Gravity,Urine 1.032 (1.001-1.035)
[2021-12-08 05:38] LABS: Bilirubin,Urine Negative (Negative); Ketones,Urine 1+ (Negative); Urobilinogen,Urine 0.2 mg/dL (<2.0)
[2021-12-08] MEDS ORDERED: NITROGLYCERIN SL TABS 0.4 MG TAB SUBLINGUAL PRN (05:38)
[2021-12-08 05:40] LABS: African American GFR (CKD) 82 (>60 ml/min/1.73 sqM); Anion Gap 13 mmol/L; Blood Urea Nitrogen 24 mg/dL (7-17); Calcium 10.4 mg/dL (8.4-10.2); Carbon Dioxide 23 mmol/L (22-30); Chloride 100 mmol/L (98-107); Glucose 355 mg/dL (74-99); Magnesium 1.8 mg/dL (1.6-2.3); Non-African American GFR(CKD) 71 (>60 ml/min/1.73 sqM); Phosphorus 4.4 mg/dL (2.5-4.5); Potassium 4.4 mmol/L (3.5-5.1); Sodium 136 mmol/L (137-145)
[2021-12-08] MEDS ORDERED: MECLIZINE 25 MG TAB PO PRN (07:26)
[2021-12-08] MEDS ORDERED: SUMAtriptan succinate 25 MG TAB PO PRN (07:26)
[2021-12-08] MEDS ORDERED: DICYCLOMINE 10 MG CAP PO PRN (07:26)
[2021-12-08] MEDS ORDERED: ONDANSETRON 4 MG TAB PO PRN (07:26)
[2021-12-08 07:27] LABS: Glucose,Whole Blood 355 mg/dL (75-99)
--- NOTE | 2021-12-08 07:58 | XR ---
EXAMINATION TYPE: XR chest 1V DATE OF EXAM: 12/08/2021 COMPARISON: X-ray dated 08/10/2020 HISTORY: Chest pain TECHNIQUE: Single frontal view of the chest is obtained. FINDINGS: Tiny calcified granuloma is seen in the left lower lung zone, appreciated previously. Grossly unremar kable lungs otherwise. No sizable pleural effusion or definite pneumothorax. No gross cardiomegaly. N o gross aggressive bone lesion. IMPRESSION: No definite acute abnormality identified.
[2021-12-08] MEDS ORDERED: DOBUTamine DRIP for NUC MED 500 MG in DEXTROSE/WATER 1 250ML.BAG IV PRN (08:08)
--- NOTE | 2021-12-08 08:08 | P.CRDCN ---
History of Present Illness Consult date: 12/08/21 History of present illness: The patient is a 56-year-old female with history of hypertension and diabetes as well has a history of severe concentric left ventricular hypertrophy, followed at [facility] who yesterday because of dizziness underwent infusion of intravenous steroids and subsequently had elevation of her blood sugar and felt dizzy and sweaty. She came into the emergency room and while in the emergency room had episodes of chest discomfort with dyspnea on exertion with recurrence of her symptoms since. She has no prior documented history of obstructive CAD, underwent a stress test in 2019 that showed no evidence of stress-induced ischemia, her systolic function was normal by echocardiography. She had an MRI that showed hypertrophic cardiomyopathy. The report is not available to me. She has no history of ventricular ectopic activity or syncope. Her average activity stable. She has some dyspnea on exertion but no significant peripheral edema, no PND or orthopnea. She has been started on Lasix because of occasional edema. She has no history of malignant arrhythmia. She has a history of hypertension and hyperlipidemia. She stopped smoking in August 2020. On presentation her blood sugar was 500, the troponin less than 0.012. Her BUN and creatinine 24 and .91. Her hemoglobin is 13.5. Her EKG shows sinus mechanism with no acute ST segment changes. Her medication at home include Lipitor 40 mg daily, Lasix 20 mg daily, Neurontin, Lotrel 10/20 mg daily, metoprolol succinate 100 mg daily, Januvia. Review of system Respiratory: No history of asthma, bronchitis or recent cough. She has occasional dyspnea on exertion GI: No nausea, vomiting. No history of peptic ulcer disease. No recent GI bleed. : No hematuria or dysuria. Nervous System: No stroke or seizure. She has dizziness Physical examination 56-year-old female alert and oriented no apparent distress, blood pressure 144/70 with a heart rate in the 80s Head: Normocephalic. Eyes: Sclerae nonicteric. Neck: Good carotid upstroke, no bruit, no jugular venous distention. Lungs: Clear to auscultation. Heart: Regular rate and rhythm, S1-S2, no S3, no rub. Systolic murmur 2/6 at the base with no significant changes with Valsalva Abdomen: Soft nontender, positive bowel sounds no organomegaly. Extremities: No edema, intact distal pulses. Impression: 1. Chest discomfort of unclear etiology no evidence of acute coronary syndrome in a patient with multiple risk factors 2. Diabetes with elevated blood sugar secondary to steroids infusion 3. History of hypertrophic cardiomyopathy, nonobstructive according to the records 4. History of hypertension 5. History of hyperlipidemia Plan: 1. Resume home medication 2. Obtain an echocardiogram with Doppler 3. Dobutamine stress echocardiogram 4. If there is no evidence of stress-induced ischemia then no further workup will be needed 5. Thank you for this consult we will follow with you Past Medical History Past Medical History: Chest Pain / Angina, Diabetes Mellitus, GERD/Reflux, Hyperlipidemia, Thyroid Disorder Additional Past Medical History / Comment(s): STATES CURRENT RECTAL FISSURE AND RECTAL PAIN, blood in stool, hx ulcer, hx gout, frequent urination, states had couple readings of high BP at doctors office but not on rx or dx with hypertension. SOB with activity, hypertrophic cadrio myopathy History of Any Multi-Drug Resistant Organisms: None Reported Past Surgical History: Cholecystectomy, Hysterectomy, Orthopedic Surgery, Tonsillectomy, Tubal Ligation Additional Past Surgical History / Comment(s): rt foot surgery Past Anesthesia/Blood Transfusion Reactions: Motion Sickness Additional Past Anesthesia/Blood Transfusion Reaction / Comment(s): SPINNING Past Psychological History: No Psychological Hx Reported Smoking Status: Current every day smoker Past Alcohol Use History: Rare Past Drug Use History: Marijuana - Past Family History Father Family Medical History: CVA/TIA, Dementia, Diabetes Mellitus Additional Family Medical History / Comment(s): arthritis, cabg Mother Family Medical History: Diabetes Mellitus Additional Family Medical History / Comment(s): glacoma Medications and Allergies Home Medications Medication Instructions Recorded Confirmed Type [place]-3 Fatty Acids/Fish Oil [Fish 1 cap PO DAILY 08/10/20 12/08/21 History Oil 1,000 mg Softgel] Albuterol Sulfate [Ventolin HFA] 2 puff INHALATION RT-Q4H PRN #1 08/11/20 12/08/21 Rx inhaler Atorvastatin [Lipitor] 40 mg PO HS #30 tab 08/11/20 12/08/21 Rx Gabapentin [Neurontin] 300 mg PO TID #90 cap 08/11/20 12/08/21 Rx Levothyroxine Sodium [Synthroid] 25 mcg PO DAILY #30 tab 08/11/20 12/08/21 Rx Meclizine [Antivert] 25 mg PO TID PRN #15 tab 08/11/20 12/08/21 Rx Omeprazole [PriLOSEC] 20 mg PO AC-BID #60 cap 08/11/20 12/08/21 Rx Pramipexole [Mirapex] 1 mg PO HS #30 tab 08/11/20 12/08/21 Rx SUMAtriptan SUCCINATE [Imitrex] 25 mg PO BID PRN #30 tab 08/11/20 12/08/21 Rx amLODIPine BESYLATE/BENAZEPRIL 1 cap PO DAILY #30 cap 08/11/20 12/08/21 Rx [Lotrel 10-20 MG] sitaGLIPtin PHOSPHATE [Januvia] 50 mg PO DAILY #30 tab 08/11/20 12/08/21 Rx Baclofen [Lioresal] 20 mg PO HS 12/08/21 12/08/21 History Calcium Carbonate/Vitamin D3 2 cap PO DAILY 12/08/21 12/08/21 History [Calcium 600 mg-D3 10 Mcg (400 Iu)] Cholecalciferol [Vitamin D3 (25 100 mcg PO DAILY 12/08/21 12/08/21 History Mcg = 1000 Iu)] Cyanocobalamin (Vitamin B-12) 1,000 mcg PO DAILY 12/08/21 12/08/21 History [Vitamin B-12] Dicyclomine HCl 10 mg PO TID PRN 12/08/21 12/08/21 History Ezetimibe [Zetia] 10 mg PO DAILY 12/08/21 12/08/21 History Furosemide [Lasix] 20 mg PO DAILY 12/08/21 12/08/21 History Metoprolol Succinate [Toprol XL] 100 mg PO DAILY 12/08/21 12/08/21 History Ondansetron HCl [Zofran] 4 mg PO Q8H PRN 12/08/21 12/08/21 History hydrOXYzine HCL [Atarax] 50 mg PO HS 12/08/21 12/08/21 History Allergies Allergy/AdvReac Type Severity Reaction Status Date / Time hydrocodone [From [place]] Allergy itchy/blist Verified 12/08/21 06:32 ers codeine AdvReac see Verified 12/08/21 06:32 [From Tylenol-Codeine #3] comments dapagliflozin [From Farxiga] AdvReac vertigo & Verified 12/08/21 06:32 dry mouth Physical Exam Vitals: Vital Signs Temp Pulse Pulse Resp BP BP Pulse Ox 12/08/21 07:00 97.7 F 65 16 144/77 97 12/08/21 06:05 88 16 141/95 95 12/07/21 21:23 98.1 F 80 16 130/78 95 Intake and Output 12/07/21 12/08/21 12/08/21 22:59 06:59 14:59 Other: Weight 108.409 kg Results 12/08/21 00:30 12/08/21 00:30 Cardiac Enzymes 12/08/21 Range/Units 00:30 Troponin I <0.012 (0.000-0.034) ng/mL CBC 12/08/21 Range/Units 00:30 WBC 13.0 H (3.8-10.6) k/uL RBC 4.48 (3.80-5.40) m/uL Hgb 13.5 (11.4-16.0) gm/dL Hct 40.6 (34.0-46.0) % Plt Count 224 (150-450) k/uL Comprehensive Metabolic Panel 12/08/21 Range/Units 00:30 Sodium 136 L (137-145) mmol/L Potassium 4.4 (3.5-5.1) mmol/L Chloride 100 (98-107) mmol/L Carbon Dioxide 23 (22-30) mmol/L BUN 24 H (7-17) mg/dL Creatinine 0.91 (0.52-1.04) mg/dL Glucose 355 H (74-99) mg/dL Calcium 10.4 H (8.4-10.2) mg/dL Current Medications Generic Name Dose Route Start Last Admin Trade Name Freq PRN Reason Stop Dose Admin Amlodipine Besylate 10 mg 12/08/21 09:00 Amlodipine 10 Mg Tab PO DAILY [facility] Aspirin 325 mg 12/09/21 09:00 Aspirin 325 Mg Tab PO DAILY [facility] Atorvastatin Calcium 40 mg 12/08/21 21:00 Atorvastatin 40 Mg Tab PO HS ES Dicyclomine HCl 10 mg 12/08/21 07:26 Dicyclomine 10 Mg Cap PO TID PRN IBS Ezetimibe 10 mg 12/08/21 09:00 Ezetimibe 10 Mg Tab PO DAILY ES Furosemide 20 mg 12/08/21 09:00 Furosemide 20 Mg Tab PO DAILY [facility] Gabapentin 300 mg 12/08/21 09:00 Gabapentin 300 Mg Cap PO TID [facility] Insulin Aspart 0 unit 12/08/21 07:30 Insulin Aspart (Novolog) 100 Unit/Ml Vial SQ ACHS [facility] Protocol Levothyroxine Sodium 25 mcg 12/08/21 09:00 Levothyroxine 25 Mcg Tab PO DAILY@0630 [facility] Linagliptin 5 mg 12/08/21 09:00 Linagliptin 5 Mg Tablet PO DAILY [facility] Lisinopril 20 mg 12/08/21 09:00 Lisinopril 20 Mg Tab PO DAILY [facility] Meclizine HCl 25 mg 12/08/21 07:26 Meclizine 25 Mg Tab PO TID PRN Vertigo Metoprolol Succinate 100 mg 12/08/21 09:00 Metoprolol Succinate (Er) 100 Mg Tab.Er.24h PO DAILY [facility] Nitroglycerin 0.4 mg 12/08/21 05:38 Nitroglycerin Sl Tabs 0.4 Mg Tab SUBLINGUAL Q5M PRN Chest Pain Ondansetron HCl 4 mg 12/08/21 07:26 Ondansetron 4 Mg Tab PO Q8H PRN Nausea And Vomiting Pramipexole Dihydrochloride 1 mg 12/08/21 21:00 Pramipexole 1 Mg Tab PO HS [facility] Sumatriptan Succinate 25 mg 12/08/21 07:26 Sumatriptan Succinate 25 Mg Tab PO BID PRN Migraine Headache Intake and Output 12/07/21 12/08/21 12/08/21 22:59 06:59 14:59 Other: Weight 108.409 kg 12/08/21 00:30 12/08/21 00:30
[2021-12-08] MEDS: GABAPENTIN 300 MG CAP PO SCH ×3 (08:51→21:29)
[2021-12-08] MEDS: EZETIMIBE 10 MG TAB PO SCH (08:51)
[2021-12-08] MEDS: amLODIPine 10 MG TAB PO SCH (08:51)
[2021-12-08] MEDS: LEVOTHYROXINE 25 MCG TAB PO SCH (08:51)
[2021-12-08] MEDS: lisinopriL 20 MG TAB PO SCH (08:51)
[2021-12-08] MEDS: LINAGLIPTIN 5 MG TABLET PO SCH (08:52)
[2021-12-08] MEDS: FUROSEMIDE 20 MG TAB PO SCH (08:52)
[2021-12-08] MEDS ORDERED: DOBUTamine DRIP for NUC MED 500 MG/250 ML BAG IV ONE (10:15)
[2021-12-08 10:21] LABS: Basophils % (A) 0 %; Eosinophils # (A) 0.1 k/uL (0-0.7); Eosinophils % (A) 1 %; HCT 40.5 % (34.0-46.0); HGB 13.2 gm/dL (11.4-16.0); Lymphocytes # (A) 1.2 k/uL (1.0-4.8); Lymphocytes % (A) 9 %; MCH 29.6 pg (25.0-35.0); MCHC 32.6 g/dL (31.0-37.0); MCV 90.7 fL (80.0-100.0); Mean Platelet Volume 8.4; Monocytes # (A) 0.5 k/uL (0-1.0); Monocytes % (A) 4 %; Neutrophils % (A) 86 %; Platelet Count 215 k/uL (150-450); RBC 4.47 m/uL (3.80-5.40); WBC 13.9 k/uL (3.8-10.6)
[2021-12-08 10:26] LABS: African American GFR (CKD) >90 (>60 ml/min/1.73 sqM); Anion Gap 9 mmol/L; Blood Urea Nitrogen 19 mg/dL (7-17); Calcium 9.8 mg/dL (8.4-10.2); Carbon Dioxide 22 mmol/L (22-30); Chloride 105 mmol/L (98-107); Glucose 289 mg/dL (74-99); Non-African American GFR(CKD) >90 (>60 ml/min/1.73 sqM); Sodium 136 mmol/L (137-145)
[2021-12-08 11:57] LABS: Glucose,Whole Blood 258 mg/dL (75-99)
[2021-12-08] MEDS: INSULIN ASPART (NovoLOG) 100 UNIT/ML VIAL SQ SCH ×4 (12:10→21:29)
[2021-12-08] MEDS: METOPROLOL SUCCINATE (ER) 100 MG TAB.ER.24H PO SCH (12:59)
--- NOTE | 2021-12-08 13:31 | ECHOF ---
Referral Reason:hcm MEASUREMENTS -------- HEIGHT: 162.6 cm WEIGHT: 91.6 kg BP: IVSd: 1.7 cm (0.6 - 1.1) LVIDd: 4.7 cm (3.9 - 5.3) LVPWd: 1.2 cm (0.6 - 1.1) IVSs: 1.9 cm LVIDs: 3.3 cm LVPWs: 1.5 cm LA Diam: 3.8 cm (2.7 - 3.8) LAESV Index (A-L): 31.26 ml/m Ao Diam: 3.6 cm (2.0 - 3.7) AV Cusp: 1.5 cm (1.5 - 2.6) LA Diam: 4.4 cm (2.7 - 3.8) MV E Rajesh: 0.39 m/s MV DecT: 246 ms MV A Rajesh: 0.93 m/s MV E/A Ratio: 0.42 RAP: 5.00 mmHg RVSP: 10.90 mmHg FINDINGS -------- Sinus rhythm. This was a technically adequate study. The left ventricular size is normal. There is severe concentric left ventricular hypertrophy. Ove rall left ventricular systolic function is low-normal with, an EF between 50 - 55 %. The diastolic filling pattern is normal for the age of the patient 9.57. The right ventricle is normal in size. LA is midly dilated 29-33ml/m2. The right atrial size is normal. 5.0mg OF [place] UTLIZED: 2 OR MORE WALL SEGMENTS NOT VISUALIZED. The aortic valve was not well visualized. The mitral valve is normal. Mild mitral regurgitation is present. The tricuspid valve appears structurally normal. Mild tricuspid regurgitation present. Right vent ricular systolic pressure is normal at < 35 mmHg. The pulmonic valve was not well visualized. The aortic root size is normal. Echo free space represents a pericardial fat pad. CONCLUSIONS -------- 1. Overall left ventricular systolic function is low-normal with, an EF between 50 - 55 %. 2. LA is midly dilated 29-33ml/m2. 3. 5.0mg OF [place] UTLIZED: 2 OR MORE WALL SEGMENTS NOT VISUALIZED. 4. The aortic valve was not well visualized. 5. Mild mitral regurgitation is present. 6. Mild tricuspid regurgitation present. 7. Echo free space represents a pericardial fat pad. PANTOGRAPH ENGRAVER: Giovanna Nicole RDCS
--- NOTE | 2021-12-08 13:52 | ECHOS ---
STRESS ECHOCARDIOGRAM INDICATIONS: Chest pain BASELINE HEART RATE: 64 BASELINE BLOOD PRESSURE: 114/64 MAXIMUM HEART RATE: 149 MAXIMUM BLOOD PRESSURE: 200/57 85% MPHR: 139 100% MPHR: 164 METS: MAXIMUM STAGE REACHED: III TOTAL EXERCISE TIME: 8:50 CLINICAL INFORMATION: Baseline rhythm is sinus mechanism, rate of 54, left axis deviation, RSR prime, left ventricular hypertrophy criteria. Baseline blood pressure 114/64 mmHg. Patient received infusion of dobutamine per protocol. Peak rate 149 beats per minute, which is equal to 90% of maximum predicted heart rate. Peak blood pressure 200/57 mmHg. Electrocardiograph monitoring revealed no evidence of diagnostic ischemic ST deviation. Rare PACs were noted. FINDINGS: Baseline echocardiogram revealed normal thickness and wall motion. At peak exercise, there was normal wall motion augmentation with no hypokinesis or dyskinesis. CONCLUSION: 1. Normal electrocardiograph response to dobutamine infusion. 2. Normal stress echocardiogram with no evidence of stress-induced ischemia. MMODL / IJN: [id number] /
[2021-12-08 16:04] LABS: Estimated Average Glucose UNC
[2021-12-08 17:25] LABS: Glucose,Whole Blood 284 mg/dL (75-99)
[2021-12-08] MEDS ORDERED: hydrOXYzine HCL 25 MG TAB PO SCH (21:00)
[2021-12-08] MEDS ORDERED: PRAMIPEXOLE 1 MG TAB PO SCH (21:00)
[2021-12-08] MEDS ORDERED: ATORVASTATIN 40 MG TAB PO SCH (21:00)
[2021-12-08] MEDS ORDERED: BACLOFEN 10 MG TAB PO SCH (21:00)
[2021-12-08] MEDS ORDERED: BUTALB/APAP/CAFF 50-325-40MG TAB PO PRN (21:07)
[2021-12-08 21:08] LABS: Glucose,Whole Blood 385 mg/dL (75-99)
--- NOTE | 2021-12-08 21:14 | P.HPIM ---
History of Present Illness This is a pleasant 56 years old female with past medical history of Chest Pain / Angina, Diabetes Mellitus, GERD/Reflux, Hyperlipidemia, hypothyroidism, history of gout, history of blood in his stool, hypertrophic cadrio myopathy, Current every day smoker Patient presents with hyperglycemia and glucose more than 500 after she received IV steroids for her ear problem She also patient developed chest pain while she was in the emergency room Patient states that she has a right ear problem causing her off balance for about a year that sometimes she feels like she is a trunk feeling well and she follows up with [facility] and Dr. Robert Mcginnis her primary coordinator doctor there, yesterday they gave her IV steroids for the above problems, they checked her sugar at the center was around 160 and they sent her home, at home she is starts feeling sweating, bad headache and dizziness and checked her sugar it was more than 550 so she decided to come to emergency room. Also patient has been complaining of from diarrhea for 2 days but stopped now, no abdominal pain or vomiting. Get up and go test is normal and her work and is normal. She denies any urinary symptoms like no dysuria urgency, no weakness or numbness. However while she was in the emergency room she developed chest pain which is done now. Currently she is chest pain-free, no dyspnea, no coughing. She states her headache is about 4/10 on the top of her head has been coming for about a week and felt like thrombing Vitas looks stable. Labs showing mild leukocytosis of 13.0 K, sodium 136, creatinine normal, glucose elevated 317-355, calcium 10.4, troponin less than 0.012. Urine analysis showed glucosuria, coronavirus detected. Review of Systems CONSTITUTIONAL: No fever, no malaise, no fatigue. HEENT: No recent visual problems or hearing problems. Denied any sore throat. CARDIOVASCULAR: No orthopnea, PND, no palpitations, no syncope. PULMONARY: No shortness of breath, no cough, no hemoptysis. GASTROINTESTINAL: No diarrhea, no nausea, no vomiting, no abdominal pain. Normoactive bowel sounds. NEUROLOGICAL: no weakness, no numbness. HEMATOLOGICAL: Denies any bleeding or petechiae. GENITOURINARY: Denies any burning micturition, frequency, or urgency. MUSCULOSKELETAL/RHEUMATOLOGICAL: Denies any joint pain, swelling, or any muscle pain. ENDOCRINE: Denies any polyuria or polydipsia. Past Medical History Past Medical History: Chest Pain / Angina, Diabetes Mellitus, GERD/Reflux, Hyperlipidemia, Thyroid Disorder Additional Past Medical History / Comment(s): STATES CURRENT RECTAL FISSURE AND RECTAL PAIN, blood in stool, hx ulcer, hx gout, frequent urination, states had couple readings of high BP at doctors office but not on rx or dx with hypertension. SOB with activity, hypertrophic cadrio myopathy History of Any Multi-Drug Resistant Organisms: None Reported Past Surgical History: Cholecystectomy, Hysterectomy, Orthopedic Surgery, Tonsillectomy, Tubal Ligation Additional Past Surgical History / Comment(s): rt foot surgery Past Anesthesia/Blood Transfusion Reactions: Motion Sickness Additional Past Anesthesia/Blood Transfusion Reaction / Comment(s): SPINNING Past Psychological History: No Psychological Hx Reported Smoking Status: Current every day smoker Past Alcohol Use History: Rare Past Drug Use History: Marijuana - Past Family History Father Family Medical History: CVA/TIA, Dementia, Diabetes Mellitus Additional Family Medical History / Comment(s): arthritis, cabg Mother Family Medical History: Diabetes Mellitus Additional Family Medical History / Comment(s): glacoma Medications and Allergies Home Medications Medication Instructions Recorded Confirmed Type [place]-3 Fatty Acids/Fish Oil [Fish 1 cap PO DAILY 08/10/20 12/08/21 History Oil 1,000 mg Softgel] Albuterol Sulfate [Ventolin HFA] 2 puff INHALATION RT-Q4H PRN #1 08/11/20 12/08/21 Rx inhaler Atorvastatin [Lipitor] 40 mg PO HS #30 tab 08/11/20 12/08/21 Rx Gabapentin [Neurontin] 300 mg PO TID #90 cap 08/11/20 12/08/21 Rx Levothyroxine Sodium [Synthroid] 25 mcg PO DAILY #30 tab 08/11/20 12/08/21 Rx Meclizine [Antivert] 25 mg PO TID PRN #15 tab 08/11/20 12/08/21 Rx Omeprazole [PriLOSEC] 20 mg PO AC-BID #60 cap 08/11/20 12/08/21 Rx Pramipexole [Mirapex] 1 mg PO HS #30 tab 08/11/20 12/08/21 Rx SUMAtriptan SUCCINATE [Imitrex] 25 mg PO BID PRN #30 tab 08/11/20 12/08/21 Rx amLODIPine BESYLATE/BENAZEPRIL 1 cap PO DAILY #30 cap 08/11/20 12/08/21 Rx [Lotrel 10-20 MG] sitaGLIPtin PHOSPHATE [Januvia] 50 mg PO DAILY #30 tab 08/11/20 12/08/21 Rx Baclofen [Lioresal] 20 mg PO HS 12/08/21 12/08/21 History Calcium Carbonate/Vitamin D3 2 cap PO DAILY 12/08/21 12/08/21 History [Calcium 600 mg-D3 10 Mcg (400 Iu)] Cholecalciferol [Vitamin D3 (25 100 mcg PO DAILY 12/08/21 12/08/21 History Mcg = 1000 Iu)] Cyanocobalamin (Vitamin B-12) 1,000 mcg PO DAILY 12/08/21 12/08/21 History [Vitamin B-12] Dicyclomine HCl 10 mg PO TID PRN 12/08/21 12/08/21 History Ezetimibe [Zetia] 10 mg PO DAILY 12/08/21 12/08/21 History Furosemide [Lasix] 20 mg PO DAILY 12/08/21 12/08/21 History Metoprolol Succinate [Toprol XL] 100 mg PO DAILY 12/08/21 12/08/21 History Ondansetron HCl [Zofran] 4 mg PO Q8H PRN 12/08/21 12/08/21 History hydrOXYzine HCL [Atarax] 50 mg PO HS 12/08/21 12/08/21 History Allergies Allergy/AdvReac Type Severity Reaction Status Date / Time hydrocodone [From [place]] Allergy itchy/blist Verified 12/08/21 06:32 ers codeine AdvReac see Verified 12/08/21 06:32 [From Tylenol-Codeine #3] comments dapagliflozin [From Farxiga] AdvReac vertigo & Verified 12/08/21 06:32 dry mouth Physical Exam Vitals: Vital Signs Temp Pulse Resp BP Pulse Ox 12/08/21 06:05 88 16 141/95 95 12/07/21 21:23 98.1 F 80 16 130/78 95 Intake and Output 12/07/21 12/08/21 12/08/21 22:59 06:59 14:59 Other: Weight 108.409 kg -GENERAL: The patient is alert and oriented x3, not in any acute distress. Obese HEENT: Pupils are round and equally reacting to light. EOMI. No scleral icterus. No conjunctival pallor. Normocephalic, atraumatic. No pharyngeal erythema. No thyromegaly. CARDIOVASCULAR: S1 and S2 present. No murmurs, rubs, or gallops. PULMONARY: Chest is clear to auscultation, no wheezing or crackles. ABDOMEN: Soft, nontender, nondistended, normoactive bowel sounds. No palpable organomegaly. MUSCULOSKELETAL: No joint swelling or deformity. EXTREMITIES: No cyanosis, clubbing, or pedal edema. NEUROLOGICAL: Gross neurological examination did not reveal any focal deficits. SKIN: No rashes. No petechiae get up and go test: Normal Results CBC & Chem 7: 12/08/21 09:59 12/08/21 09:59 Labs: Abnormal Lab Results - Last 24 Hours (Table) 12/07/21 12/08/21 12/08/21 Range/Units 21:32 00:18 00:30 WBC 13.0 H (3.8-10.6) k/uL Neutrophils # (Manual) 11.70 H (1.3-7.7) k/uL Sodium (137-145) mmol/L BUN (7-17) mg/dL Glucose (74-99) mg/dL POC Glucose (mg/dL) 500 H 355 H (75-99) mg/dL Calcium (8.4-10.2) mg/dL Urine Glucose (UA) (Negative) Urine Ketones (Negative) 12/08/21 12/08/21 12/08/21 Range/Units 00:30 01:05 04:06 WBC (3.8-10.6) k/uL Neutrophils # (Manual) (1.3-7.7) k/uL Sodium 136 L (137-145) mmol/L BUN 24 H (7-17) mg/dL Glucose 355 H (74-99) mg/dL POC Glucose (mg/dL) 317 H (75-99) mg/dL Calcium 10.4 H (8.4-10.2) mg/dL Urine Glucose (UA) 4+ H (Negative) Urine Ketones 1+ H (Negative) Assessment and Plan Assessment: Chest pain, cardiac causes ruled out and chest pain resolved Diabetes mellitus, with hyperglycemia on admission chronic ongoing symptoms of dizziness and occasional headache and she follows with the neurologist as an outpatient Hypertension Hyperlipidemia Nicotine dependence History of GERD Hypothyroidism History of colic History of blood in stool Hypertrophic cardiomyopathy Obesity with BMI of 33.3 Plan: This is a pleasant 56 years old female who presents with chest pain. Solution Analyst on the case recommend stress test Cardiology consult Switch sitagliptin to linagliptin for non forumalory reasons Check hemoglobin A1c Check orthostatic vitals Start IV fluids Labs and medication were reviewed.. Continue same treatment. Continue with symptomatic treatment. Resume home medication. Monitor lytes and vitals. DVT and GI prophylaxis. Further recommendations depends on the clinical course of the patient DVT prophylaxis: Subcutaneous heparin GI Prophylaxis: Pepcid
[2021-12-08] MEDS: SODIUM CHLORIDE 0.9% 1,000 ML IV SCH (21:29)
[2021-12-08] MEDS: GLIMEPIRIDE 1 MG TAB PO SCH (21:30)
[2021-12-09 02:17] LABS: Glucose,Whole Blood 219 mg/dL (75-99)
[2021-12-09 04:34] VITALS: RESP 15
[2021-12-09] MEDS: SODIUM CHLORIDE 0.9% 1,000 ML IV SCH (05:18)
[2021-12-09] MEDS: LEVOTHYROXINE 25 MCG TAB PO SCH (05:21)
[2021-12-09 07:34] LABS: Glucose,Whole Blood 163 mg/dL (75-99)
[2021-12-09 08:07] VITALS: BP 129/79; PULSE 60; TEMP 98.1
[2021-12-09] MEDS: GLIMEPIRIDE 1 MG TAB PO SCH (08:37)
[2021-12-09] MEDS: amLODIPine 10 MG TAB PO SCH (08:37)
[2021-12-09] MEDS: GABAPENTIN 300 MG CAP PO SCH (08:37)
[2021-12-09] MEDS: EZETIMIBE 10 MG TAB PO SCH (08:37)
[2021-12-09] MEDS: lisinopriL 20 MG TAB PO SCH (08:37)
[2021-12-09] MEDS: FUROSEMIDE 20 MG TAB PO SCH (08:37)
[2021-12-09] MEDS: LINAGLIPTIN 5 MG TABLET PO SCH (08:38)
[2021-12-09] MEDS: METOPROLOL SUCCINATE (ER) 100 MG TAB.ER.24H PO SCH (08:38)
[2021-12-09] MEDS: INSULIN ASPART (NovoLOG) 100 UNIT/ML VIAL SQ SCH (08:38)
[2021-12-09] MEDS ORDERED: ASPIRIN 325 MG TAB PO SCH (09:00)
[2021-12-09 10:48] LABS: Basophils # (A) 0.03 X 10*3/uL (0.00-0.10); Basophils % (A) 0.4 %; Eosinophils # (A) 0.03 X 10*3/uL (0.04-0.35); Eosinophils % (A) 0.4 %; HCT 39.1 % (37.2-46.3); HGB 12.6 g/dL (12.0-15.0); Immature Grans, Automated 0.4 %; Lymphocytes # (A) 2.79 X 10*3/uL (0.90-5.00); Lymphocytes % (A) 34.4 %; MCH 29.4 pg (27.0-32.0); MCHC 32.2 g/dL (32.0-37.0); MCV 91.1 fL (80.0-97.0); Mean Platelet Volume 11.4 fL (9.5-12.2); Monocytes % (A) 6.2 %; NRBC Per 100 WBC 0 /100 WBCS (0.0-0.0); Neutrophils # (A) 4.73 X 10*3/uL (1.80-7.70); Neutrophils % (A) 58.2 %; Platelet Count 178 X 10*3/uL (140-440); RBC 4.29 X 10*6/uL (4.10-5.20); RDW 12.3 % (11.5-14.5); WBC 8.11 X 10*3/uL (4.50-10.00)
[2021-12-09 11:33] LABS: African American GFR (CKD) 112.3 (60.0-200.0); BUN/Creat Ratio 29.43 Ratio (12.00-20.00); Blood Urea Nitrogen 20.6 mg/dL (9.0-27.0); Carbon Dioxide 25.5 mmol/L (20.0-27.5); Chloride 104 mmol/L (96-109); Chol/HDL Ratio 4.03 Ratio; Glucose 184 mg/dL (70-110); LDL Cholesterol,Calculated 95.7 mg/dL (0.0-131.0); Non-African American GFR(CKD) 96.9 (60.0-200.0); Potassium 4.1 mmol/L (3.5-5.5); Sodium 142 mmol/L (135-145)
[2021-12-09 12:06] LABS: Glucose,Whole Blood 191 mg/dL (75-99)
--- NOTE | 2021-12-09 19:17 | P.DS ---
Providers Date of admission: 12/08/21 05:38 Attending physician: Coni Trent Primary care physician: Michael Bills Hospital Course: Diagnoses: Chest pain, resoled and post manager. The patient for discharge Diabetes mellitus, with hyperglycemia on admission . Sugar is controlled after IV hydration and pending tomorrow on the top of her home dose of Januvia History of chronic ongoing symptoms of dizziness and occasional headache and she follows with the neurologist as an outpatient. Patient was asymptomatic upon discharge Hypertension Hyperlipidemia Nicotine dependence History of GERD Hypothyroidism History of colic History of blood in stool Hypertrophic cardiomyopathy Obesity with BMI of 33.3 Hospital course: This is a pleasant 56 years old female with past medical history of Chest Pain / Angina, Diabetes Mellitus, GERD/Reflux, Hyperlipidemia, hypothyroidism, history of gout, history of blood in his stool, hypertrophic cadrio myopathy, Current every day smoker Patient presents with hyperglycemia and glucose more than 500 after she received IV steroids for her ear problem at her neurologist office. She also patient developed chest pain while she was in the emergency room. Patient was admitted with post manager evaluation, patient had negative stress test with post manager who cleared her for discharge. Her chest pain resolved since yesterday. Yesterday she has some headache, numbness in the hands and dizziness, and she looks dehydrated so she was treated with normal saline at 1 30 mL/h which she confirms she got IV fluids overnight and in the morning she was asymptomatic, with no headache, no dizziness, no numbness. She denies other neurological symptoms, no blurred vision or slurred speech, no weakness or loss of sensation. Also she was chest pain-free with no dyspnea. No other specific complaints. Patient feels better and she agrees she can go home today. Regarding her diabetes she confirmed to me she cannot take metformin (because of its GI SE) and farxiga (for it causes dizziness to the pt). Therefore a 1 mg was added to her Januvia and her sugar was controlled in the morning 160-190 and patient was asymptomatic and already cleared for discharge by post manager. Patient denies any dyspnea, no coughing, no fever, no change in urine or bowel habits. Gait is normal Problems and management plan were discussed with the patient and he verbalized understanding and acceptance Patient was found stable and can be discharged home however he needs follow-up as an outpatient. Patient was instructed to follow up with PCP Dr. Bills within one week and patient agreesAlso patient was instructed to follow up with her neurologist at the [facility] and Dr. Mcginnis in one week and she agrees to call and make her own appointment. Physical exam Gen: patient is a AAOx3, no distress CVS: S1-S2, RRR, no murmur Lungs: B/L CTA, no wheezing Abdomen: soft, no distention, no tenderness, positive bowel sounds Extremity: no leg edema or induration Time spent more than 35 minutes Plan - Discharge Summary Discharge Rx Participant: No New Discharge Prescriptions: New Glimepiride [Amaryl] 1 mg PO AC-BRKFST #30 tab Continue [place]-3 Fatty Acids/Fish Oil [Fish Oil 1,000 mg Softgel] 1 cap PO DAILY Meclizine [Antivert] 25 mg PO TID PRN #15 tab PRN Reason: Vertigo Omeprazole [PriLOSEC] 20 mg PO AC-BID #60 cap SUMAtriptan SUCCINATE [Imitrex] 25 mg PO BID PRN #30 tab PRN Reason: Migraine Headache sitaGLIPtin PHOSPHATE [Januvia] 50 mg PO DAILY #30 tab Atorvastatin [Lipitor] 40 mg PO HS #30 tab amLODIPine BESYLATE/BENAZEPRIL [Lotrel 10-20 MG] 1 cap PO DAILY #30 cap Pramipexole [Mirapex] 1 mg PO HS #30 tab Gabapentin [Neurontin] 300 mg PO TID #90 cap Levothyroxine Sodium [Synthroid] 25 mcg PO DAILY #30 tab Albuterol Sulfate [Ventolin HFA] 2 puff INHALATION RT-Q4H PRN #1 inhaler PRN Reason: Shortness Of Breath Or Wheezing Calcium Carbonate/Vitamin D3 [Calcium 600 mg-D3 10 Mcg (400 Iu)] 2 cap PO DAILY Dicyclomine HCl 10 mg PO TID PRN PRN Reason: IBS Furosemide [Lasix] 20 mg PO DAILY hydrOXYzine HCL [Atarax] 50 mg PO HS Metoprolol Succinate [Toprol XL] 100 mg PO DAILY Baclofen [Lioresal] 20 mg PO HS Cholecalciferol [Vitamin D3 (25 Mcg = 1000 Iu)] 100 mcg PO DAILY Cyanocobalamin (Vitamin B-12) [Vitamin B-12] 1,000 mcg PO DAILY Ezetimibe [Zetia] 10 mg PO DAILY ondansetron HCL [Zofran] 4 mg PO Q8H PRN PRN Reason: Nausea And Vomiting Discharge Medication List [place]-3 Fatty Acids/Fish Oil [Fish Oil 1,000 mg Softgel] 1 cap PO DAILY 08/10/20 [History] Albuterol Sulfate [Ventolin HFA] 2 puff INHALATION RT-Q4H PRN #1 inhaler 08/11/20 [Rx] Atorvastatin [Lipitor] 40 mg PO HS #30 tab 08/11/20 [Rx] Gabapentin [Neurontin] 300 mg PO TID #90 cap 08/11/20 [Rx] Levothyroxine Sodium [Synthroid] 25 mcg PO DAILY #30 tab 08/11/20 [Rx] Meclizine [Antivert] 25 mg PO TID PRN #15 tab 08/11/20 [Rx] Omeprazole [PriLOSEC] 20 mg PO AC-BID #60 cap 08/11/20 [Rx] Pramipexole [Mirapex] 1 mg PO HS #30 tab 08/11/20 [Rx] SUMAtriptan SUCCINATE [Imitrex] 25 mg PO BID PRN #30 tab 08/11/20 [Rx] amLODIPine BESYLATE/BENAZEPRIL [Lotrel 10-20 MG] 1 cap PO DAILY #30 cap 08/11/20 [Rx] sitaGLIPtin PHOSPHATE [Januvia] 50 mg PO DAILY #30 tab 08/11/20 [Rx] Baclofen [Lioresal] 20 mg PO HS 12/08/21 [History] Calcium Carbonate/Vitamin D3 [Calcium 600 mg-D3 10 Mcg (400 Iu)] 2 cap PO DAILY 12/08/21 [History] Cholecalciferol [Vitamin D3 (25 Mcg = 1000 Iu)] 100 mcg PO DAILY 12/08/21 [History] Cyanocobalamin (Vitamin B-12) [Vitamin B-12] 1,000 mcg PO DAILY 12/08/21 [History] Dicyclomine HCl 10 mg PO TID PRN 12/08/21 [History] Ezetimibe [Zetia] 10 mg PO DAILY 12/08/21 [History] Furosemide [Lasix] 20 mg PO DAILY 12/08/21 [History] Metoprolol Succinate [Toprol XL] 100 mg PO DAILY 12/08/21 [History] hydrOXYzine HCL [Atarax] 50 mg PO HS 12/08/21 [History] ondansetron HCL [Zofran] 4 mg PO Q8H PRN 12/08/21 [History] Glimepiride [Amaryl] 1 mg PO AC-BRKFST #30 tab 12/09/21 [Rx] Follow up Appointment(s)/Referral(s): Michael Bills DO [Primary Care Provider] - 1-2 days Activity/Diet/Wound Care/Special Instructions: Your insurance requires you to have you obtain your glucometer through [employer]. They have been sent a order for your supplies. You can contact them at [phone]. Low carbohydrate diabetic diet 1600 kcal per day Activity is restricted until you see your doctor Recommend you follow-up with your neurologist at [facility] and Dr. Inez Mcginnis , please call to make an appointment within 1 week. You have the contact information as informed the medical staff We recommend nerve conduction study, EMG as an outpatient and more imaging of the neck per Your neurologist Discharge Disposition: HOME SELF-CARE
== END 2021-12-09 14:02 | disposition home or self-care (01) ==
LOC: EC 21:13 → 6NMEDSUR 12-08 05:38
PROVIDERS: ADMIT Hospitalist; ATTEND Hospitalist
DX: R07.89 Other chest pain (principal); E11.65 Type 2 diabetes mellitus with hyperglycemia; T38.0X5A Adverse effect of glucocorticoids and synthetic analogues, initial encounter; I42.2 Other hypertrophic cardiomyopathy; E86.0 Dehydration; E03.9 Hypothyroidism, unspecified; I10 Essential (primary) hypertension; E78.5 Hyperlipidemia, unspecified; K21.9 Gastro-esophageal reflux disease without esophagitis; R42 Dizziness and giddiness; R51.9 Headache, unspecified; R20.0 Anesthesia of skin; E66.9 Obesity, unspecified; Z68.33 Body mass index [BMI] 33.0-33.9, adult; F17.200 Nicotine dependence, unspecified, uncomplicated; Z20.822 Contact with and (suspected) exposure to COVID-19; Z79.890 Hormone replacement therapy; Z79.84 Long term (current) use of oral hypoglycemic drugs; Z79.899 Other long term (current) drug therapy; Z88.5 Allergy status to narcotic agent; Z88.8 Allergy status to other drugs, medicaments and biological substances; Z90.49 Acquired absence of other specified parts of digestive tract; Z90.710 Acquired absence of both cervix and uterus; Z98.51 Tubal ligation status; Z98.890 Other specified postprocedural states; Z87.19 Personal history of other diseases of the digestive system; Z87.39 Personal history of other diseases of the musculoskeletal system and connective tissue; Z83.3 Family history of diabetes mellitus; Z82.3 Family history of stroke; Z83.511 Family history of glaucoma; Z82.61 Family history of arthritis; Z82.0 Family history of epilepsy and other diseases of the nervous system
CPT/HCPCS: 99285; 36415 ×2; 93005; 93306; 80061; 80048 ×2; 82803; 82009; 83735 ×2; 84100; 84484; 85025 ×2; 81003; 83036; 87635; 71045; G0378 ×2; C8930; J1250; Q9950; 93351

== ENCOUNTER 2023-10-04 08:19 | Day surgery (SDC) | payer OTHER ==
[2023-10-03 09:51] VITALS: BMI 33.6
[~2023-10-04 08:19] MED LIST: LACTATED RINGERS 1,000 ML IV SCH
[2023-10-04] MEDS ORDERED: LIDOCAINE 1% (10MG/ML) FOR IV START INTRADERMA ONE (09:45)
[2023-10-04] MEDS ORDERED: MIDAZOLAM 2 MG/2 ML VIAL IVP ONE (09:59)
[2023-10-04] MEDS ORDERED: PROPOFOL 10 MG/ML 20 ML VIAL IV ONE (10:08)
[2023-10-04 10:10] LABS: Glucose,Whole Blood 119 mg/dL (70-110)
[2023-10-04 10:14] VITALS: TEMP 97.1
--- NOTE | 2023-10-04 10:34 | P.PCN ---
Date of Procedure: 10/04/23 Procedure(s) Performed: BRIEF HISTORY: Patient is a 58-year-old pleasant white female scheduled for an elective colonoscopy as a part of evaluation of prior history of colon polyps. Last colonoscopy was 5 years ago. PROCEDURE PERFORMED: Colonoscopy with snare polypectomy. PREOPERATIVE DIAGNOSIS: History of colon polyps. IV sedation per Anesthesia. PROCEDURE: After informed consent was obtained, the patient, was brought into the endoscopy unit. IV sedation was administered by Anesthesia under continuous monitoring. Digital rectal examination was normal. Initially the Olympus CF-160 flexible video colonoscope was then inserted in the rectum, gradually advanced into the cecum without any difficulty. Careful examination was performed as the scope was gradually being withdrawn. Ileocecal valve and the appendiceal orifice were visualized and appeared normal. Prep was excellent. Mucosa of the cecum, we normal. The ascending colon there was a 4 mm polyp that was removed by cold snare polypectomy. In the transverse colon there was an 8 mm polyp that was removed by cold snare polypectomy. In the sigmoid there was a 5 mm polyp removed by snare polypectomy. Rest of the descending colon, sigmoid colon, and rectum appeared normal. Retroflexion was performed in the rectum and no lesions were seen. The patient tolerated the procedure well. IMPRESSION: 4 mm ascending colon polyp status post cold snare polypectomy 8 mm transverse colon polyp status post snare polypectomy 5 mm; polyp status post snare polypectomy RECOMMENDATIONS: Findings of this examination were discussed with the patient as well as a family. She was advised to follow with the biopsy results. If the biopsy results adenoma she can have a repeat colonoscopy in 5 years..
[2023-10-04 11:05] VITALS: BP 128/80; PULSE 68; RESP 18
== END 2023-10-04 11:28 ==
LOC: ORWHC2ENDO 08:19
PROVIDERS: ATTEND Internal Medicine Gastroenterology
DX: Z12.11 Encounter for screening for malignant neoplasm of colon (principal); D12.2 Benign neoplasm of ascending colon; D12.3 Benign neoplasm of transverse colon; D12.5 Benign neoplasm of sigmoid colon; I25.10 Atherosclerotic heart disease of native coronary artery without angina pectoris; I10 Essential (primary) hypertension; E78.5 Hyperlipidemia, unspecified; E11.9 Type 2 diabetes mellitus without complications; E07.9 Disorder of thyroid, unspecified; K21.9 Gastro-esophageal reflux disease without esophagitis; Z79.890 Hormone replacement therapy; Z86.010 Personal history of colon polyps; Z79.899 Other long term (current) drug therapy
CPT/HCPCS: 88305; 45385; J2250; J2704